=== PATIENT | female | born 1935 | race Asian ===

== ENCOUNTER 2021-01-23 07:26 | Inpatient (IN) ==
[2021-01-23 07:39] VITALS: BMI 22.8
[2021-01-23] MEDS ORDERED: CATAPRES PO STA (07:45)
[2021-01-23] MEDS ORDERED: MOTRIN PO STA (07:45)
[2021-01-23] MEDS ORDERED: ZOFRAN 4 MG/2 ML IVP STA (07:45)
[2021-01-23] MEDS ORDERED: TYLENOL PO STA (07:45)
[2021-01-23] MEDS ORDERED: SODIUM CHLORIDE 500 ML IV STA ×3 (07:45→11:47)
[2021-01-23 08:09] LABS: BASOPHILS % (AUTO) 0.3 % (0.0-3.0); EOSINOPHILS # (AUTO) 0.1 K/ul (0.0-0.7); EOSINOPHILS % (AUTO) 0.9 % (0.0-7.0); HEMATOCRIT 39.3 % (37.0-47.0); HEMOGLOBIN 12.9 g/dl (12.0-16.0); IMMATURE GRANULOCYTE # (AUTO) 0.1 (0.0-1.0); IMMATURE GRANULOCYTE % (AUTO) 0.5 % (0.0-5.0); LYMPHOCYTES # (AUTO) 0.9 K/uL (0.60-3.4); LYMPHOCYTES % (AUTO) 7.6 (10.0-50.0); MEAN CORPUSCULAR HEMOGLOBIN 28.3 pg (27.0-31.0); MEAN CORPUSCULAR HGB CONC 32.8 (31.8-35.4); MEAN CORPUSCULAR VOLUME 86.2 fl (81.0-99.0); MONOCYTES # (AUTO) 0.1 K/uL (0.4-2.0); NEUTROPHILS # (AUTO) 10.1 K/ul (2.0-6.9); NEUTROPHILS % (AUTO) 89.7 % (42.2-75.2); PLATELET COUNT 228 10^3/uL (140-440); RDW COEFFICIENT OF VARIATION 12.9 % (11.6-14.8); RED BLOOD COUNT 4.56 10^6/ul (4.20-5.40); WHITE BLOOD COUNT 11.21 K/ul (4.6-10.2)
--- NOTE | 2021-01-23 08:10 | ED.PDOC ---
General ED Provider: Dr. PALAK KRAMER MD Chief Complaint: Nausea/Vomiting Stated Complaint: chills, nausea and vomiting x this AM. Time Seen by Provider: 01/23/21 07:33 Mode of Arrival: Wheelchair Information Source: Family Exam Limitations: Language barrier (pt son was piece jobber. pt questions were answered via her son and he expressed understanding of what was said.) Nursing and Triage Documentation Reviewed and Agree: Yes Does patient meet sepsis criteria?: No System Inflammatory Response Syndrome: Not Applicable Sepsis Protocol: For patient's 13 years and over: Temp is 96.8 and below OR 101 and greater Pulse >90 BPM Resp >20/minute Acutely Altered Mental Status Are patient's symptoms suggestive of a new infection, such as: -Pneumonia -Skin, Soft Tissue -Endocarditis -UTI -Bone, Joint Infection -Implantable Device -Acute Abdominal Infection -Wound Infection -Meningitis -Blood Stream Catheter Infection -Unknown Respiratory Complaint Exam Shortness of Air Complaint/Exam Onset/Duration: 2 hrs. pt had fever, nausea and vomiting. no SOB sxs. Symptoms Are: Still present Timing: Constant Initial Severity: Moderate Current Severity: Moderate Aggravating: Reports None Alleviating: Reports None Associated Signs and Symptoms: Reports Fever and Chills History of Healthcare-Acquired Pneumonia: No and Lives at group home Cardiac Risk Factors: Reports None Home Oxygen Use: No Recent Stress Test: No Recent Echo/LV Function: No Respiratory Distress: None Stridor Present: No Tracheal Deviation: No Subcutaneous Emphysema: No Accessory Muscle Use: No Retractions: Not Present Diminished Breath Sounds: No Fatigue: Yes Leg Swelling: No Hilaria's Sign Present: No Grunting Respirations: No Kussmaul Respirations: No Differential Diagnoses: COPD Exacerbation, Pneumonia, SARS and URI Review of Systems Review Of Systems Constitutional: Reports Chills and Fever Eyes: Reports No symptoms Ears, Nose, Mouth, Throat: Reports No symptoms Respiratory: Reports No symptoms Cardiac: Reports Palpitations GI: Reports Nausea and Vomiting : Reports No symptoms Musculoskeletal: Reports No symptoms Skin: Reports No symptoms Neurological: Reports No symptoms Endocrine: Reports No symptoms Hematologic/Lymphatic: Reports No symptoms All Other Systems: Reviewed and Negative Physical Exam Physical Exam Appearance: Reports Well-nourished Ill-appearing: Mild Pain Distress: None Eyes: Reports BENJI, EOMI and Conjunctiva clear ENT: Reports Ears normal, Nose normal and Oropharynx normal (mild pharyngeal erythema.) Neck: Supple Respiratory: Reports Airway patent and Breath sounds clear Cardiovascular: Reports Pulses normal, No rub, No murmur and Tachycardia GI/: Reports Soft, Nontender, No masses, Bowel sounds normal and No Organomegaly Musculoskeletal: Reports Normal strength, ROM intact, No edema and No calf tenderness Skin: Reports Warm, Dry and Normal color Neurological: Reports Sensation intact, Motor intact, Reflexes intact, Cranial nerves intact, Alert and Oriented Psychiatric: Reports Affect appropriate and Mood appropriate Interpretation Radiology Interpretation Radiology Interpretation By: Radiologist Exam Interpreted: Portable CXR EKG Interpretation Time of EKG #1: 08:07 Rate: Tachy Rhythm: Sinus Ectopy: None Calion: NL ST Segment: Normal Interpretation: no acute ST or T wave changes. Re-Evaluation Re-Evaluation Time of Re-Evaluation: 08:31 Status: Improved Vital Signs Stable: Yes Pain Level: 0 Lungs: Clear Skin: Warm and Dry Neuro: Alert and Oriented X3 CV: RRR Critical Care Note Critical Care Note Total Critical Care Time (mins): 30 Course Course Hematology/Chemistry: 01/23/21 08:08 01/23/21 08:08 Orders, Labs, Meds: Lab Review 01/23/21 01/23/21 01/23/21 08:05 08:05 08:05 WBC RBC Hgb Hct MCV MCH MCHC RDW Coeff of Kumar Plt Count Immature Gran % (Auto) Neut % (Auto) Lymph % (Auto) Ulster % (Auto) Eos % (Auto) Baso % (Auto) Neut # (Auto) Lymph # (Auto) Ulster # (Auto) Eos # (Auto) Baso # (Auto) Immature Gran # (Auto) Sodium Potassium Chloride Carbon Dioxide Anion Gap BUN Creatinine Estimated GFR (MDRD) BUN/Creatinine Ratio Glucose Lactic Acid Calcium Total Bilirubin AST ALT Alkaline Phosphatase Troponin I Total Protein Albumin Globulin Albumin/Globulin Ratio Lipase 149.0 Urine Color Yellow Urine Clarity Cloudy Urine pH 6.5 Ur Specific Harrington >=1.030 Urine Protein 3+ H Urine Glucose (UA) Negative Urine Ketones Negative Urine Blood Trace-intact H Urine Nitrite Positive H Urine Bilirubin Negative Urine Urobilinogen 0.2 Ur Leukocyte Esterase Trace H Urine Microscopic RBC 5-10 Urine Microscopic WBC 30-50 Ur Squamous Epith Cells 2-5 Amorphous Sediment 3+ Urine Bacteria 3+ Influ A Molecular Assay Negative by naat Influ B Molecular Assay Negative by naat SARS-CoV-2 Ag (Rapid) 01/23/21 01/23/21 01/23/21 08:08 08:08 08:08 WBC 11.21 H RBC 4.56 Hgb 12.9 Hct 39.3 MCV 86.2 MCH 28.3 MCHC 32.8 RDW Coeff of Kumar 12.9 Plt Count 228 Immature Gran % (Auto) 0.5 Neut % (Auto) 89.7 H Lymph % (Auto) 7.6 L Ulster % (Auto) 1.0 Eos % (Auto) 0.9 Baso % (Auto) 0.3 Neut # (Auto) 10.1 H Lymph # (Auto) 0.9 Ulster # (Auto) 0.1 L Eos # (Auto) 0.1 Baso # (Auto) 0.0 Immature Gran # (Auto) 0.1 Sodium 138.9 Potassium 4.31 Chloride 104.4 Carbon Dioxide 22.1 Anion Gap 16.71 BUN 20.3 H Creatinine 0.76 Estimated GFR (MDRD) 72.00 BUN/Creatinine Ratio 26.71 Glucose 205.0 H Lactic Acid 2.63 H Calcium 9.51 Total Bilirubin 0.41 AST 28.4 ALT 16.3 Alkaline Phosphatase 65.6 Troponin I 0.044 Total Protein 8.25 H Albumin 4.37 Globulin 3.88 Albumin/Globulin Ratio 1.12 Lipase Urine Color Urine Clarity Urine pH Ur Specific Har[place] Urine Protein Urine Glucose (UA) Urine Ketones Urine Blood Urine Nitrite Urine Bilirubin Urine Urobilinogen Ur Leukocyte Esterase Urine Microscopic RBC Urine Microscopic WBC Ur Squamous Epith Cells Amorphous Sediment Urine Bacteria Influ A Molecular Assay Influ B Molecular Assay SARS-CoV-2 Ag (Rapid) 01/23/21 08:08 WBC RBC Hgb Hct MCV MCH MCHC RDW Coeff of Kumar Plt Count Immature Gran % (Auto) Neut % (Auto) Lymph % (Auto) Ulster % (Auto) Eos % (Auto) Baso % (Auto) Neut # (Auto) Lymph # (Auto) [place] # (Auto) Eos # (Auto) Baso # (Auto) Immature Gran # (Auto) Sodium Potassium Chloride Carbon Dioxide Anion Gap BUN Creatinine Estimated GFR (MDRD) BUN/Creatinine Ratio Glucose Lactic Acid Calcium Total Bilirubin AST ALT Alkaline Phosphatase Troponin I Total Protein Albumin Globulin Albumin/Globulin Ratio Lipase Urine Color Urine Clarity Urine pH Ur Specific Har[place] Urine Protein Urine Glucose (UA) Urine Ketones Urine Blood Urine Nitrite Urine Bilirubin Urine Urobilinogen Ur Leukocyte Esterase Urine Microscopic RBC Urine Microscopic WBC Ur Squamous Epith Cells Amorphous Sediment Urine Bacteria Influ A Molecular Assay Influ B Molecular Assay SARS-CoV-2 Ag (Rapid) Negative Orders Category Date Time Status EKG-(ED ONLY) Stat CARDIO 01/23/21 07:45 Completed NPO REMINDER: IMAGING ONCE CARE 01/23/21 08:48 Active NPO REMINDER: IMAGING ONCE CARE 01/23/21 09:06 Active ED IV/MEDIPORT/POWERPORT .ONCE EMERGENCY 01/23/21 07:45 Active BLOOD CULTURE (ED ONLY) Stat LAB 01/23/21 08:08 Received CBC W/ AUTO DIFF Stat LAB 01/23/21 08:08 Completed COMPREHENSIVE METABOLIC PANEL Stat LAB 01/23/21 08:08 Completed COVID-19 ANTIGEN TEST Stat LAB 01/23/21 08:08 Completed FLU A/B MOLECULAR Stat LAB 01/23/21 08:05 Completed LACTIC ACID Stat LAB 01/23/21 08:08 Completed LIPASE Stat LAB 01/23/21 08:05 Completed MOLECULAR GROUP A STREP Stat LAB 01/23/21 08:15 Completed PROCALCITONIN Stat LAB 01/23/21 08:05 Received RESPIRATORY PANEL 2.1 (PCR) Stat LAB 01/23/21 Ordered TROPONIN I Stat LAB 01/23/21 08:08 Completed URINALYSIS C & S IF INDICATED Stat LAB 01/23/21 08:05 Completed URINE CULTURE Stat LAB 01/23/21 08:05 Received 0.9 % Sodium Chloride [Saline Flush] MEDS 01/23/21 07:45 Active 1 syr IVF PRN PRN Acetaminophen [Tylenol] MEDS 01/23/21 07:45 Discontinued 650 mg PO ONCE STA Azithromycin [Zithromax] MEDS 01/23/21 10:11 Discontinued 500 mg PO ONCE STA Ceftriaxone/D5w 1 gm Premix [Rocephin 1 gm/50 ml D5w] MEDS 01/23/21 08:33 Discontinued 1 gm in 50 ml IV ONCE Clonidine HCl [Catapres] MEDS 01/23/21 07:45 Discontinued 0.2 mg PO ONCE STA Ibuprofen [Motrin] MEDS 01/23/21 07:45 Discontinued 800 mg PO ONCE STA Ondansetron HCl/Pf [Zofran 4 mg/2 ml] MEDS 01/23/21 07:45 Discontinued 4 mg IVP ONCE STA Sodium Chloride 0.9% [Sodium Chloride] 1,000 ml MEDS 01/23/21 09:49 Active IV 125 mls/hr Sodium Chloride 0.9% [Sodium Chloride] 500 ml MEDS 01/23/21 07:45 Discontinued IV BOLUS Sodium Chloride 0.9% [Sodium Chloride] 500 ml MEDS 01/23/21 10:26 Active IV BOLUS CHEST, 1V AP ONLY Stat RADS 01/23/21 07:[address] ABDOMEN/PELVIS W CONTRAST Stat RADS 01/23/21 09:[address] CHEST W/CONTRAST Stat RADS 01/23/21 08:48 Taken Medications Generic Name Dose Route Start Last Admin Trade Name Freq PRN Reason Stop Dose Admin Sodium Chloride 1,000 mls @ 125 mls/hr 01/23/21 09:49 Sodium Chloride IV 01/23/21 17:48 .Q8H STA Sodium Chloride 500 mls @ 500 mls/hr 01/23/21 10:26 Sodium Chloride IV 01/23/21 11:25 BOLUS STA Sodium Chloride 1 syr 01/23/21 07:45 01/23/21 09:50 0.9% Sodium Chloride 10 Ml Disp.Syrin IVF 1 syr PRN PRN Administration To flush IV Discontinued Medications Generic Name Dose Route Start Last Admin Trade Name Freq PRN Reason Stop Dose Admin Acetaminophen 650 mg 01/23/21 07:45 01/23/21 08:08 Acetaminophen 325 Mg Tablet PO 01/23/21 07:46 650 mg ONCE STA Administration Azithromycin 500 mg 01/23/21 10:11 01/23/21 10:38 Azithromycin 250 Mg Tablet PO 01/23/21 10:12 500 mg ONCE STA Administration Clonidine 0.2 mg 01/23/21 07:45 01/23/21 08:07 Clonidine Hcl 0.1 Mg Tablet PO 01/23/21 07:46 0.2 mg ONCE STA Administration Sodium Chloride 500 mls @ 500 mls/hr 01/23/21 07:45 01/23/21 08:08 Sodium Chloride IV 01/23/21 08:44 500 mls/hr BOLUS STA Administration CEFTRIAXONE/D5W 1 GM PREMIX 1 gm in 50 mls @ 75 mls/hr 01/23/21 08:33 01/23/21 08:46 Rocephin 1 Gm/50 Ml D5w IV 01/23/21 09:12 75 mls/hr ONCE STA Administration Ibuprofen 800 mg 01/23/21 07:45 01/23/21 08:08 Ibuprofen 400 Mg Tablet PO 01/23/21 07:46 800 mg ONCE STA Administration Ondansetron HCl 4 mg 01/23/21 07:45 01/23/21 08:08 Ondansetron Hcl/Pf 4 Mg/2 Ml Sdv IVP 01/23/21 07:46 4 mg ONCE STA Administration Vital Signs: Temp Pulse Resp BP Pulse Ox 01/23/21 07:31 102.5 F H 115 H 22 198/93 H 96 Discharge Plan Discharge Prescriptions: No Action Vitamin C 25 mg Tablet 25 mg PO DAILY RF: 0 B-complex with vitamin C [Blank B Comp W/C] Capsule 25 cap PO DAILY RF: 0 ED Provider: PALKA KRAMER Physician Progress Note: []Pt was d/w Dr King and her family: for admission here. Please see admission orders.
[2021-01-23 08:16] LABS: BILIRUBIN,URINE Negative (NEGATIVE); CLARITY,URINE Cloudy (CLEAR); COLOR,URINE Yellow (YELLOW); GLUCOSE, URINE (UA) Negative (NEGATIVE); KETONES,URINE Negative (NEGATIVE); LEUKOCYTE ESTERASE ,URINE Trace (NEGATIVE); NITRITE,URINE Positive (NEGATIVE); PH,URINE 6.5 (5-9); PROTEIN,URINE 3+ (NEGATIVE); URINE, BLOOD Trace-intact (NEGATIVE); UROBILINOGEN,URINE 0.2 (0.2)
[2021-01-23 08:21] LABS: ALANINE AMINOTRANSFERASE 16.3 U/L (0-35); ALBUMIN 4.37 g/dL (3.5-5.0); ALKALINE PHOSPHATASE 65.6 U/L (53-141); ASPARTATE AMINO TRANSFERASE 28.4 U/L (14-36); BILIRUBIN,TOTAL 0.41 mg/dL (0.2-1.3); BLOOD UREA NITROGEN 20.3 mg/dL (7-17); CALCIUM 9.51 mg/dL (8.4-10.2); CARBON DIOXIDE 22.1 mmol/L (22-30.0); CHLORIDE 104.4 mmol/L (98-107); CREATININE 0.76 mg/dL (0.60-1.30); POTASSIUM 4.31 mmol/L (3.5-5.1); SODIUM 138.9 mmol/L (134.5-145); TOTAL PROTEIN 8.25 g/dL (6.3-8.2)
[2021-01-23 08:23] LABS: AMORPHOUS SEDIMENT,UR 3+ (NOT PRESENT); BACTERIA,URINE 3+ (NOT PRESENT); URINE WBC, MICROSCOPIC 30-50 (0-2)
[2021-01-23 08:33] LABS: TROPONIN I 0.044 ng/ml (0.0000-0.120)
[2021-01-23] MEDS ORDERED: ROCEPHIN 1 GM/50 ML D5W 1 GM/50 ML BAG IV STA (08:33)
[2021-01-23 08:34] LABS: MOLECULAR FLU A NEGATIVE BY NAAT (NEGATIVE); MOLECULAR FLU B NEGATIVE BY NAAT (NEGATIVE)
--- NOTE | 2021-01-23 08:46 | DI ---
EXAM: Chest one view HISTORY: Fever, vomiting COMPARISON: None TECHNIQUE: Single view of the chest was performed FINDINGS: Heart size is upper limits of normal. Nonspecific prominence of the right hilum. The danisha gs are clear. No pleural effusion or pneumothorax. No acute osseous abnormality. IMPRESSION: 1. No acute cardiopulmonary process. 2. Nonspecific right hilar prominence, which could represent vascular summation artifact versus whitney opathy or neoplasm. CT chest with IV contrast can further evaluate.
[2021-01-23] MEDS ORDERED: SODIUM CHLORIDE 1,000 ML IV STA (09:49)
--- NOTE | 2021-01-23 09:53 | CT ---
EXAM: CT chest with intravenous contrast CT abdomen and pelvis with intravenous contrast COMPARISON: Chest radiograph 01/23/2021. HISTORY: Abnormal chest radiograph. Nausea, vomiting and fever. TECHNIQUE: CT images of the chest, abdomen and pelvis were obtained following the administration of intravenous contrast agent. Axial reconstructions with sagittal and coronal reformats were provided. Submitted images are moderately limited by patient motion artifact. FINDINGS: CT chest: Limited assessment of the mediastinal vessels due to motion artifact. There are scattered vascular c alcifications as well as eccentric atherosclerotic plaque with some irregular margins involving the a rosalina at the level of the aortic arch and extending along the origin of the left subclavian artery. N o evidence of an aneurysm. Mild eccentric plaque formation extends through the descending thoracic a rosalina. No mediastinal hematoma. Mild cardiomegaly. No significant pericardial effusion. Sub centim eter mediastinal and hilar lymph nodes which are not pathologic by size criteria. Central airways ar e patent. Soft tissue fullness noted in the right hilum on recent chest radiographs is likely relate d to superimposition of blood vessels at that site. Limited assessment of the lung parenchyma due to respiratory motion artifact. Regions of linear subs egmental atelectasis versus scarring in the left lower lobe and middle lobe. Dependent atelectasis b ilaterally. Patchy ground-glass opacities lower lobes bilaterally could represent superimposed mild pneumonitis/pneumonia and clinical correlation is recommended. 0.5 cm nodular opacity laterally in t he right lung base pleural effusion or pneumothorax. Mild degenerative changes of the thoracic spine . CT abdomen/pelvis: Fatty infiltration of the liver. Calcified gallstones measuring up to 1.4 cm in size. Gallbladder measures up to 2.9 cm in diameter. The spleen, pancreas and adrenal glands are gr ossly unremarkable. Common bile duct is prominent measuring up to 0.7 cm in diameter. Vascular calc ifications an eccentric plaque formation involving the abdominal aorta without evidence of an aneurys m. Atherosclerotic changes of the iliac arteries and mesenteric vessels without definite evidence of high-grade stenosis. Perinephric stranding bilaterally more pronounced on the right side. There is mild to moderate right-sided hydronephrosis and hydroureter with distension of the ureter extending all the way through the through the vesicoureteral junction though without definite radiopaque obstru cting calculus. They appears to be some urothelial enhancement. Correlation for signs of infection or recent stone passage is recommended. Wall thickening of the urinary bladder which could be relate d to cystitis. No evidence of left-sided hydronephrosis. Low-density lesion in the upper pole of th e left kidney may represent a small cyst though is too small to definitely characterized. Limited assessment of the bowel due to lack of enteric contrast. Small bowel and colon are normal in caliber without evidence of bowel obstruction. Minor amount of well-formed stool within the colon p roximally. No evidence of acute appendicitis. No evidence of acute diverticulitis. No free intra-a bdominal air or fluid. Degenerative changes lumbar spine most severe at L5/S1 with large disc osteop hyte complex and vacuum phenomenon. Degenerative changes of the sacroiliac joints pubic symphysis. Degenerative changes of the hips more severe on the right side. The final report was faxed to the radiology department and emergency room at 9:44 a.m. on 01/23/2021. IMPRESSION: CT chest: No right hilar mass. The abnormality on prior radiographs is likely related to superimposition of va scular structures. Sub centimeter mediastinal and hilar lymph nodes which are not pathologic by size criteria. Cardiomegaly and atherosclerotic vascular disease as described. Dependent atelectasis. Patchy ground-glass opacities in the lower lobes bilaterally may represent rivera perimposed mild pneumonitis/pneumonia. Clinical correlation is recommended. 0.5 cm subpleural nodule laterally in the right lung base. Recommend follow-up CT chest in [address] abdomen/pelvis: Atherosclerotic vascular disease. No evidence of bowel obstruction. Normal appendix. Moderate amount of well-formed stool. Mild to moderate right hydronephrosis without definite obstructing radiopaque calculus. Suspected ur othelial enhancement. Wall thickening of the urinary bladder. Correlate clinically for signs of cys titis/pyelonephritis or recent stone passage. Question small left renal cyst. Cholelithiasis. Correlate clinically for signs of acute cholecystitis. Additional chronic / degenerative changes as described. All CT scans are performed using dose optimization techniques as appropriate to the performed exam an d include at least one of the following: Automated exposure control, adjustment of the mA and/or kV according t o size, and the use of iterative reconstruction technique.
[2021-01-23] MEDS ORDERED: ZITHROMAX PO STA (10:11)
[2021-01-23] MEDS ORDERED: TYLENOL PO PRN (11:10)
[2021-01-23] MEDS ORDERED: SODIUM CHLORIDE 1,000 ML IV SCH (11:30)
[2021-01-23] MEDS ORDERED: LEVAQUIN 750 MG/150 ML D5W 750 MG/150 ML BAG IV SCH (11:30)
--- NOTE | 2021-01-23 11:39 | PCM ---
Chief Complaint Chief Complaint: Chills nausea and vomiting. History of Present Illness History of Present Illness: 85 yo [place] Female presented to ED this am 01/23/21 at 0733 with chills, nausea, vomiting x2. The patient is present with her son, who is able to translate for her due to language barrier. Vitals on presentation showed temp 102.5, pulse 115, rr 22 BP 198/93 and Po2 96% on RA. SIRS criteria were met based on temp, HR, RR. Symptoms present 2 hours fever, nausea and emesis this am. No reported SOA/sxs. Symptoms still present, moderate severity in ED, no known agg/ameliorating factors. Reported non longterm resident. No reported respiratory distress, no stridor, no emphysema, no diminished breath sounds reported, Fatigue reported, no peripheral edema. Ddx in ED considered COPD exacerbation, pneumonis, SARS, URI. ROS as listed. Exam from ED only showed mild erythematous pharynx. EKG done in ED 0807 Sinus tachy, nl axis, ST segments normal> The formal EKG was not available to my review at time of rounding. Labs in ED showed Flu negative, rapid COVID negative. BIOFIRE PENDING at time of examination. WBC 11.21, hgb 12.9, plt 228. Neutrophila 89.7% ANC 10.1. CMP Sodium 138.9, K+ 4.31, BUN 20.3, cr 0.76, glucose 205. Calcium 9.51. AST 28.4. ALT 16.3. Alk phos 65.6. Troponin I was negative at 0.044. Lactic acid elevated at 2.63. Urine showed 6.5 PH, SG 1.030. Protien 3+, blood trace, nitrite positive, trace leuk est, rbc 5-10, wbc 30-50, squam epi 2-5, bact 3+. Blood cultures were ordered/submitted. Chest xray was completed no acute process. Non specific right hilar prominence which could represent vascular summation artifact versus adenopathy or neoplasm. CT chest with IV contrast can further evaluate. CT abd/pelvis was ordered. No right hilar mass. The abnormality on prior radiographs is likely related to superimposition of vascular structures. Sub centimeter mediastinal and hilar lymph nodes which are not pathologic by size criteria. Cardiomegaly and atherosclerotic vascular disease as described. Dependent atelectasis. Patchy ground-glass opacities in the lower lobes bilaterally may represent superimposed mild pneumonitis/pneumonia. Clinical correlation is recommended. 0.5 cm subpleural nodule laterally in the right lung base. Recommend follow-up CT chest in [address] abdomen/pelvis: Atherosclerotic vascular disease. No evidence of bowel obstruction. Normal appendix. Moderate amount of well-formed stool. Mild to moderate right hydronephrosis without definite obstructing radiopaque calculus. Suspected urothelial enhancement. Wall thickening of the urinary bladder. Correlate clinically for signs of cystitis/pyelonephritis or recent stone passage. Question small left renal cyst. Cholelithiasis. Correlate clinically for signs of acute cholecystitis.Additional chronic / degenerative changes as described. Dr. Vincent presented a patient with pneumonia to me clinically. I asked several questions about the patient care and found that her summation is more likely urosepsis than pneumonia w/ sepsis. She was given clonidine in ED 0.2mg and her BP dropped from 198/93 to 80's SBP per ED report. HR dropped to <100 as well per ED report. Given tylenol 650, also 1 L NS which is reasonable assuming sepsis protocol. She was given ibuprofen, which I will not continue at [facility]. Zofran for nausea and azithrmax 500 and rocephin 1 gram. Based on concern for emesis, concern for bilateral pneumonia, concern for NH status, Pseudomonas must be considered. I will change this to levaquin 750 daily and cefepime 2grams IV q 8 hours. I have not seen patient as an outpatient historically. She had an appt with me historically but this appt was not kept. I evaluated patient in ED room 1. Called son at [phone] and had a 14 minute conversation. Patient awoke this am with s/sx of current problem. Yesterday was fine, this am was fine. 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 She had 2 rounds of emesis. Did not choke.Did not seem to be different, no drop in face, no weakness, no falls, no confusion, no altered status. He noted that he gave her a heating pad and that she felt a little better. They brought her to ED and she noted she felt nearly 100% better after fluids and abx. In fact, she wanted to go home. Son noted that the ER doctor told her it was not safe and they needed to talk to me first. He stated she feels everything is good. No c/o burning with urination, no frequency, no hesitancy, no burning. No diarrhea, no N/V/D prior to today. No abnormal foods, no sick contacts, no recent travel. No other c/o that they can report. She normally takes Vit D/Vit C/Vit B. This am took some tylenol PM when feeling poorly. Healthy otherwise, no medical problems, no regular provider, no regular doctors office visits. Last time she saw a doctor was 6 months ago. Went to visit daughter in [place] and had similar episode of 1 day fever and symptoms. Son noted that they kept her for 5 days but has no idea what they did. I asked if he could contact her and we would discuss what they did for her at that time. No regular meds, no regular medical problems, does not get routine medical care/surveillance. They were not able to understand code status. I will keep them as full code for now. Son noted she was at baseline. No N/V now. No abdominal pain,no chest pain, no SOA. No reported headache, no vision changes, no loss of taste/smell, No new URI symptoms, reviewed allergy symptoms, no cough/congestion/wheezing/SOA, No CP, no reported fatigue, no abd pain, no N/V/D, no constipation, no changes reported in urination/stooling, no new MSK pain except as above, no recent injuries except as listed above. Falls reviewed and listed above. 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 No dietary issues, no choking on foods. normal BM, normal uout. Only issues was this am nausea/vomiting and fever. I asked if she would be willing to stay overnight at least to evaluate her and to make sure she is improving. He said yes. I feel that this is more urological than pulmonary based on presentatation and CT scan. I will cover with cefepime and levaquin for urosepsis as possible. Biofire returned at 11:10 otero negative. Procalcitonin was below typical threshold of <.50 but borderline. Last Vitals as of 12:18. Temp 99.6. Pulse 78 and BP 84/49 with O2 94% on RA. She is improving. I agree at least 24 hour admission is warranted. PORT SCORE: 92 points Risk Class IV 8.2-93.% Mortality. Recommended hospitalization as inpatient. CrCl 47ml/min. based on this Would recommend Cefepimre 2gram q 12 hours and Levaquin 750mg QOD (q 48 hours). Fluids to continue at 97 ml/hour Lovenox for DVT prophy recommended. REVIEW OF SYMPTOMS: (Positives bolded) General: No reported weight loss, + fever, chills, no night sweats, fatigue, appetite loss, felt fine up until this am. HEENT: No reported blurry vision, eye pain, eye discharge, dry eyes, decreased vision, sore throat tinnitus, bloody nose, hearin gloss, sinus pain/pressure, ear pain/pressure. Respiratory: No reported shortness of breath, cough, hemoptysis, wheezing, pleurisy, Cardiovascular: No chest pain, PND, palpitation, edema, orthopnea, syncope, swelling of extremities Gastro: + Nausea, vomiting, no reported diarrhea, hematemesis, + abdominal pain, constipation Genito: No reported hematuria, dysuria, glycosuria, hesitancy, frequency, incontinence. Specifically asked today. Musckelo: Arthralgia, myalgia, muscle weakness, joint swelling, NSAID use Skin: rash, pruritis, sores, nail changes, skin thickening, change in wart/mole, itching, rash, new lesions, pruritus, nail changes Neuro: Migraine, numbness, ataxia, tremor, vertigo, weakness, memory loss, Irritability, dizziness Endocrine: excessive thirst, polyuria, cold intolerance, heat intolerance, goiter Psychiatric: depression, anxiety, anti-depressants, alcohol abuse, drug abuse, insomnia, change in sleep pattern and mood changes Heme/lymph: easy bruising, bleeding gums, blood clots, swollen glands, lymphedema, Allergic/immune: allergic rhinitis, hay fever, asthma, hives Vital Signs Temp Pulse Resp BP Pulse Ox 01/23/21 12:18 99.6 F 78 18 84/49 L 94 L 01/23/21 11:39 102.5 F H 115 H 22 198/93 H 96 01/23/21 07:31 102.5 F H 115 H 22 198/93 H 96 Constitutional: Appearance-No acute distress, Resting eyes closed. Opens eyes to command. GCS 15. Language Kuwaiti, non chinik Angolan speaker. Son as belting and webbing inspector via phone. Offered language line, he would like that in future, but now he is happy to translate. Consistent with stated age. Orientation- Oriented x 3, aware of name, sunday, hospital, january. Build and Nutrition-normal BMI 22.9 General- Patient is pleasant and cooperative with the interview and exam. She was able to understand some albanian phrases and commands. Integumentary: General-No rashes, ulcers or lesions. Palpation- Normal skin moisture/turgor. Skin is warm to touch, appropriate. Capillary refill is normal bilateral Upper and lower extremity. Scaring bilateral anterior shins. Head/Neck: Head- normocephalic and atraumatic. Neck- without visible/palpable lumps or pulsations. Palpation- No bony tenderness about head/neck along f rontal, occipital, temporal, parietal, mastoid, jawline, zygoma, orbit or any other location. NO temporal artery tenderness. No TMJ tenderness. Neck Supple. Thyroid-No thyromegaly, no nodules Eye: Bilaterally PERRLA, EOMI. No discharge. Upper and lower eyelids are normal. Sclera/conjunctiva normal without discharge. Cornea is normal and clear. Lens is normal. Eyeball appears normal. No ciliary flushing, no conjunctival injection. ENMT: Pinna- normal without tenderness or erythema. External auditory canal Left- normal without erythema or discharge, no excessive cerumen. External auditory canal Right-normal without erythema or discharge, no excessive cerumen. TM left- Lyons/pearly, normal light reflex and anatomy TM Right- Lyons/pearly, normal light reflex and anatomy Hearing Assessment-normal to conversational speech. Nose and sinus- No sinus tenderness along frontal/maxillary region. External appearance normal and midline. Nares- bilateral quiet airflow, no discharge. Nasal mucosa- No bleeding noted and no ulcerations observed. [place], moist. Turbinates non boggy. Lips- normal color, moist without cracks/lesions Oral Cavity/Palate- hard/soft palate intact without lesions, oral mucosa pink and moist.ongue normal midline. Oropharynx- no pharyngeal erythema, Uvula midline. No post nasal drip. No exudate. Salivary glands- Non tender to palpation CHEST/LUNG: Inspection- symmetric chest wall no pectus deformity. Normal effort, no distress, no use of accessory muscles. Palpation- nontender sternum, ribline. No abnormal pulsations. Auscultation- Breath sounds normal throughout all lung shah. Normal tracheal sounds, Normal bronchial sounds overlying sternum, Bronchovessicular sounds coarse and reduced between scapulae posteriorly, similar for vessicular breath sounds heard throughout periphery. Lungs are mostly clear except mild crackling at the bases. Adventitious sounds- No wheezes, no rhonchi, rales as listed. Shallow inspiration. Coughed x 1 cleared. Biofire negative for COVID. CARDIOVASCULAR: Carotid artery- normal, no bruits or abnormal pulsations. J ugular vein- no pulsations. Palpation/Percussion- Normal PMI, no palpable thrill Auscultation- Regular rate and rhythm. No murmur noted in sitting, supine positions. Extremities- no digital clubbing, cyanosis, edema, increased warmth. No appreciable murmur. ABDOMEN: Inspection- normal and no visible pulsations. Normal contour. Auscultation- Bowel sounds normal, no abdominal bruits. Palpation/Percussion- soft, tender suprapubic and LLQ, no rebound tenderness, no rigidity (guarding), no jar tenderness, no masses. CVA tenderness + on right. Peripheral Vascular: Upper extremity Left- Normal temperature with pink nailbeds and no ulcerations. Upper extremity Right- Normal temperature with pink nailbeds and no ulcerations. Lower extremity- Normal temperature with pink nailbeds and no ulcerations. DP pulses 2+ bilaterally. Pedal hair intact. Normal capillary refill. Edema- No edema. Musculoskeletal: Generalized-No generalized swelling or edema of extremities, no digital clubbing or cyanosis, neurovascularly intact all four extremities. Upper extremity- Symmetrical posture. No visible deformity. Normal sensation along medial and lateral upper extremity proximally and distally. NO tenderness overlying shoulder, lateral/medial epicondyle. [employer] 5/5 and strength 5/5 bilateral UE. Elbow palpated, no tenderness overlying olecranon. Normal supination, pronation to active/passive ROM and to resisted rotation. Bicep insertion/tricep insertion appear normal without obvious pathology. Normal wrist ROM bilaterally. Normal hand movement, intrinsic muscles of hands normal. No tenderness to palpation of hands/wrists/elbows. Lower extremity- Hip: Not tender to palpation, no pain, no swelling, edema or erythema of surrounding tissue, normal strength and tone. Normal appearing hip ROM bilaterally without pain. Knee: Knee ROM normal. No tenderness overlying trochanters, no tenderness about patella, quad tendon, patellar tendon. No tenderness at tibial tuberosity. Ankle: normal ROM not tender to palpation along medial/lateral malleolus. Foot: Normal movement of toes, no tenderness bilateral feet/toes. Normal foot type. Spine/Ribs- No deformities, masses or tenderness, no known fractures, normal strength, Normal ROM. Normal stability No tenderness along C/T/L spine. Normal appearing ROM about spine. Neurological: General- Moves all 4 extremities symmetrically. Symmetrical face and body posture. Cranial nerves- individually evaluated II-XII and intact. PERRLA, Normal EOMI, visual/special senses appear intact, Face is symmetrical and normal sensation/movement, normal tongue, normal strength/posture of neck musculature. Reflexes- intact with DTR 2+ patellar, Achilles, bicep, brachial, tricep. Ankle clonus normal with 2 beats. Strength- 5/5 bilateral UE and LE. Soft touch- intact bilateral UE and LE. Temperature sensation- intact bilateral UE and LE. Neuropsych: Oriented- Person, place, time. (AAOx3), Mood/affect- normal and congruent. Able to articulate well. Speech-Normal speech, normal rate, normal tone, normal use of language, volume and coherence. Thought content- normal with ability to apply abstract thought/reason. Associations- intact, no SI/HI, no hallucinations, delusions, obsessions. Judgment/insight- Appropriate. Memory-Recall intact, remote and recent memory intact. Knowledge- Age appropriate fund of knowledge, concentration and attention span normal. language barrier. She has age appropriate understanding. Lymphatic: Head/Neck- normal size and non tender to palpation. Axillary- normal size and non tender to palpation. Femoral and Inguinal- normal size and non tender to palpation. Allergies Allergies Allergy/AdvReac Type Severity Reaction Status Date / Time No Known Allergies Allergy Verified 01/23/21 10:56 [facility] Medical History (Updated 01/23/21 @ 13:59 by KRISTIE CASTELLON, RN) No known health problems Family History Other No known health problems Social History Smoking and tobacco status: Never smoker Alcohol intake: never Medications Medications: Medications Generic Name Dose Route Start Last Admin Trade Name Freq PRN Reason Stop Dose Admin Acetaminophen 650 mg 01/23/21 11:10 Acetaminophen 325 Mg Tablet PO Q8H PRN Mild/Moderate Pain Albuterol Sulfate 2 puff 01/23/21 14:00 Albuterol Sulfate (Ventolin Hfa) 18 Gm 1 Puff With Spacer IH RTQID DEONDRE Sodium Chloride 1,000 mls @ 125 mls/hr 01/23/21 09:49 Sodium Chloride IV 01/23/21 17:48 .Q8H STA Sodium Chloride 1,000 mls @ 100 mls/hr 01/23/21 11:30 Sodium Chloride IV .Q10H DEONDRE Levofloxacin/Dextrose 750 mg in 150 mls @ 100 mls/hr 01/23/21 11:30 Levaquin 750 Mg/150 Ml D5w IV 01/26/21 11:29 DAILY DEONDRE Ceftazidime 2 gm/ Sodium 50 mls @ 50 mls/hr 01/24/21 09:00 Chloride IV 01/27/21 08:59 Q8HR DEONDRE Ondansetron HCl 4 mg 01/23/21 11:30 Ondansetron Hcl/Pf 4 Mg/2 Ml Sdv IVP Q8H DEONDRE Sodium Chloride 1 syr 01/23/21 07:45 01/23/21 09:50 0.9% Sodium Chloride 10 Ml Disp.Syrin IVF 1 syr PRN PRN Administration To flush IV Body Composition Height: 5 ft 2 in Weight: 125 lb Body Mass Index (BMI): 22.8 Lab/Tests/Diagnostic Imaging Lab/Tests/Diagnostic Imaging: Lab Review 01/23/21 01/23/21 01/23/21 08:05 08:05 08:05 WBC RBC Hgb Hct MCV MCH MCHC RDW Coeff of Kumar Plt Count Immature Gran % (Auto) Neut % (Auto) Lymph % (Auto) [place] % (Auto) Eos % (Auto) Baso % (Auto) Neut # (Auto) Lymph # (Auto) [place] # (Auto) Eos # (Auto) Baso # (Auto) Immature Gran # (Auto) Sodium Potassium Chloride Carbon Dioxide Anion Gap BUN Creatinine Estimated GFR (MDRD) BUN/Creatinine Ratio Glucose Lactic Acid Calcium Total Bilirubin AST ALT Alkaline Phosphatase Troponin I Total Protein Albumin Globulin Albumin/Globulin Ratio Lipase 149.0 Urine Color Yellow Urine Clarity Cloudy Urine pH 6.5 Ur Specific [place] >=1.030 Urine Protein 3+ H Urine Glucose (UA) Negative Urine Ketones Negative Urine Blood Trace-intact H Urine Nitrite Positive H Urine Bilirubin Negative Urine Urobilinogen 0.2 Ur Leukocyte Esterase Trace H Urine Microscopic RBC 5-10 Urine Microscopic WBC 30-50 Ur Squamous Epith Cells 2-5 Amorphous Sediment 3+ Urine Bacteria 3+ Influ A Molecular Assay Negative by naat Influ B Molecular Assay Negative by naat SARS-CoV-2 Ag (Rapid) 01/23/21 01/23/21 01/23/21 08:08 08:08 08:08 WBC 11.21 H RBC 4.56 Hgb 12.9 Hct 39.3 MCV 86.2 MCH 28.3 MCHC 32.8 RDW Coeff of Kumar 12.9 Plt Count 228 Immature Gran % (Auto) 0.5 Neut % (Auto) 89.7 H Lymph % (Auto) 7.6 L [place] % (Auto) 1.0 Eos % (Auto) 0.9 Baso % (Auto) 0.3 Neut # (Auto) 10.1 H Lymph # (Auto) 0.9 [place] # (Auto) 0.1 L Eos # (Auto) 0.1 Baso # (Auto) 0.0 Immature Gran # (Auto) 0.1 Sodium 138.9 Potassium 4.31 Chloride 104.4 Carbon Dioxide 22.1 Anion Gap 16.71 BUN 20.3 H Creatinine 0.76 Estimated GFR (MDRD) 72.00 BUN/Creatinine Ratio 26.71 Glucose 205.0 H Lactic Acid 2.63 H Calcium 9.51 Total Bilirubin 0.41 AST 28.4 ALT 16.3 Alkaline Phosphatase 65.6 Troponin I 0.044 Total Protein 8.25 H Albumin 4.37 Globulin 3.88 Albumin/Globulin Ratio 1.12 Lipase Urine Color Urine Clarity Urine pH Ur Specific [place] Urine Protein Urine Glucose (UA) Urine Ketones Urine Blood Urine Nitrite Urine Bilirubin Urine Urobilinogen Ur Leukocyte Esterase Urine Microscopic RBC Urine Microscopic WBC Ur Squamous Epith Cells Amorphous Sediment Urine Bacteria Influ A Molecular Assay Influ B Molecular Assay SARS-CoV-2 Ag (Rapid) 01/23/21 08:08 WBC RBC Hgb Hct MCV MCH MCHC RDW Coeff of Kumar Plt Count Immature Gran % (Auto) Neut % (Auto) Lymph % (Auto) [place] % (Auto) Eos % (Auto) Baso % (Auto) Neut # (Auto) Lymph # (Auto) [place] # (Auto) Eos # (Auto) Baso # (Auto) Immature Gran # (Auto) Sodium Potassium Chloride Carbon Dioxide Anion Gap BUN Creatinine Estimated GFR (MDRD) BUN/Creatinine Ratio Glucose Lactic Acid Calcium Total Bilirubin AST ALT Alkaline Phosphatase Troponin I Total Protein Albumin Globulin Albumin/Globulin Ratio Lipase Urine Color Urine Clarity Urine pH Ur Specific [place] Urine Protein Urine Glucose (UA) Urine Ketones Urine Blood Urine Nitrite Urine Bilirubin Urine Urobilinogen Ur Leukocyte Esterase Urine Microscopic RBC Urine Microscopic WBC Ur Squamous Epith Cells Amorphous Sediment Urine Bacteria Influ A Molecular Assay Influ B Molecular Assay SARS-CoV-2 Ag (Rapid) Negative Orders Category Date Time Status ABG DRAW REQUEST Stat CARDIO 01/23/21 11:10 Ordered EKG-(ED ONLY) Stat CARDIO 01/23/21 07:45 Completed METERED DOSE INHALATION Routine CARDIO 01/23/21 11:14 Ordered OXYGEN Routine CARDIO 01/23/21 11:10 Ordered SPUTUM INDUCTION PRN CARDIO 01/23/21 11:15 Ordered ACTIVITY .BR with BRP CARE 01/23/21 11:10 Active INTAKE & OUTPUT Q8HR CARE 01/23/21 11:10 Active NPO REMINDER: IMAGING ONCE CARE 01/23/21 08:48 Active NPO REMINDER: IMAGING ONCE CARE 01/23/21 09:06 Active REMINDER: Notify Provider if temp >101.5 PRN CARE 01/23/21 11:10 Active REMINDER:Breath Sounds&Sputum Production BID CARE 01/23/21 11:10 Active REMINDER:Notify Provider Pulse<60 or>130 PRN CARE 01/23/21 11:10 Active REMINDER:Notify if BP<90/60 or >170/110 PRN CARE 01/23/21 11:10 Active VITAL SIGNS Q8HR CARE 01/23/21 11:10 Active REGULAR DIET DIETARY 01/23/21 Lunch Ordered ED IV/MEDIPORT/POWERPORT .ONCE EMERGENCY 01/23/21 07:45 Active BLOOD CULTURE (ED ONLY) Stat LAB 01/23/21 08:08 Received CBC W/ AUTO DIFF DAILY@0600 LAB 01/24/21 06:00 Ordered CBC W/ AUTO DIFF DAILY@0600 LAB 01/25/21 06:00 Ordered CBC W/ AUTO DIFF Stat LAB 01/23/21 08:08 Completed COMPREHENSIVE METABOLIC PANEL DAILY@0600 LAB 01/24/21 06:00 Ordered COMPREHENSIVE METABOLIC PANEL DAILY@0600 LAB 01/25/21 06:00 Ordered COMPREHENSIVE METABOLIC PANEL Stat LAB 01/23/21 08:08 Completed COVID-19 ANTIGEN TEST Stat LAB 01/23/21 08:08 Completed FLU A/B MOLECULAR Stat LAB 01/23/21 08:05 Completed LACTIC ACID Stat LAB 01/23/21 08:08 Completed LIPASE Stat LAB 01/23/21 08:05 Completed MOLECULAR GROUP A STREP Stat LAB 01/23/21 08:15 Completed PROCALCITONIN Stat LAB 01/23/21 08:05 Received RESPIRATORY PANEL 2.1 (PCR) Stat LAB 01/23/21 11:10 Received TROPONIN I Stat LAB 01/23/21 08:08 Completed URINALYSIS C & S IF INDICATED Stat LAB 01/23/21 08:05 Completed URINE CULTURE Stat LAB 01/23/21 08:05 Received 0.9 % Sodium Chloride [Saline Flush] MEDS 01/23/21 07:45 Active 1 syr IVF PRN PRN Acetaminophen [Tylenol] MEDS 01/23/21 07:45 Discontinued 650 mg PO ONCE STA Acetaminophen [Tylenol] MEDS 01/23/21 11:10 Active 650 mg PO Q8H PRN Albuterol Inhaler(with Spacer) [Ventolin Hfa (Per Puff- MEDS 01/23/21 14:00 Ordered with Spacer)] 2 puff IH RTQID Azithromycin [Zithromax] MEDS 01/23/21 10:11 Discontinued 500 mg PO ONCE STA Ceftazidime Pentahydrate [Fortaz] 2 gm MEDS 01/24/21 09:00 Ordered 0.9 % Sodium Chloride [Sodium Chloride] 50 ml IV Q8HR Ceftriaxone/D5w 1 gm Premix [Rocephin 1 gm/50 ml D5w] MEDS 01/23/21 08:33 Discontinued 1 gm in 50 ml IV ONCE Clonidine HCl [Catapres] MEDS 01/23/21 07:45 Discontinued 0.2 mg PO ONCE STA Ibuprofen [Motrin] MEDS 01/23/21 07:45 Discontinued 800 mg PO ONCE STA Levofloxacin/D5w [Levaquin 750 mg/150 ml D5w] MEDS 01/23/21 11:30 Ordered 750 mg in 150 ml IV DAILY Ondansetron HCl/Pf [Zofran 4 mg/2 ml] MEDS 01/23/21 07:45 Discontinued 4 mg IVP ONCE STA Ondansetron HCl/Pf [Zofran 4 mg/2 ml] MEDS 01/23/21 11:30 Active 4 mg IVP Q8H Sodium Chloride 0.9% [Sodium Chloride] 1,000 ml MEDS 01/23/21 11:30 Active IV 100 mls/hr Sodium Chloride 0.9% [Sodium Chloride] 1,000 ml MEDS 01/23/21 09:49 Active IV 125 mls/hr Sodium Chloride 0.9% [Sodium Chloride] 500 ml MEDS 01/23/21 07:45 Discontinued IV BOLUS Sodium Chloride 0.9% [Sodium Chloride] 500 ml MEDS 01/23/21 10:26 Discontinued IV BOLUS CHEST, 1V AP ONLY Stat RADS 01/23/21 07:[address] ABDOMEN/PELVIS W CONTRAST Stat RADS 01/23/21 09:[address] CHEST W/CONTRAST Stat RADS 01/23/21 08:48 Taken Medications Generic Name Dose Route Start Last Admin Trade Name Freq PRN Reason Stop Dose Admin Acetaminophen 650 mg 01/23/21 11:10 Acetaminophen 325 Mg Tablet PO Q8H PRN Mild/Moderate Pain Albuterol Sulfate 2 puff 01/23/21 14:00 Albuterol Sulfate (Ventolin Hfa) 18 Gm 1 Puff With Spacer IH RTQID DEONDRE Sodium Chloride 1,000 mls @ 125 mls/hr 01/23/21 09:49 Sodium Chloride IV 01/23/21 17:48 .Q8H STA Sodium Chloride 1,000 mls @ 100 mls/hr 01/23/21 11:30 Sodium Chloride IV .Q10H DEONDRE Levofloxacin/Dextrose 750 mg in 150 mls @ 100 mls/hr 01/23/21 11:30 Levaquin 750 Mg/150 Ml D5w IV 01/26/21 11:29 DAILY DEONDRE Ceftazidime 2 gm/ Sodium 50 mls @ 50 mls/hr 01/24/21 09:00 Chloride IV 01/27/21 08:59 Q8HR DEONDRE Ondansetron HCl 4 mg 01/23/21 11:30 Ondansetron Hcl/Pf 4 Mg/2 Ml Sdv IVP Q8H DEONDRE Sodium Chloride 1 syr 01/23/21 07:45 01/23/21 09:50 0.9% Sodium Chloride 10 Ml Disp.Syrin IVF 1 syr PRN PRN Administration To flush IV Discontinued Medications Generic Name Dose Route Start Last Admin Trade Name Freq PRN Reason Stop Dose Admin Acetaminophen 650 mg 01/23/21 07:45 01/23/21 08:08 Acetaminophen 325 Mg Tablet PO 01/23/21 07:46 650 mg ONCE STA Administration Azithromycin 500 mg 01/23/21 10:11 01/23/21 10:38 Azithromycin 250 Mg Tablet PO 01/23/21 10:12 500 mg ONCE STA Administration Clonidine 0.2 mg 01/23/21 07:45 01/23/21 08:07 Clonidine Hcl 0.1 Mg Tablet PO 01/23/21 07:46 0.2 mg ONCE STA Administration Sodium Chloride 500 mls @ 500 mls/hr 01/23/21 07:45 01/23/21 08:08 Sodium Chloride IV 01/23/21 08:44 500 mls/hr BOLUS STA Administration CEFTRIAXONE/D5W 1 GM PREMIX 1 gm in 50 mls @ 75 mls/hr 01/23/21 08:33 01/23/21 08:46 Rocephin 1 Gm/50 Ml D5w IV 01/23/21 09:12 75 mls/hr ONCE STA Administration Sodium Chloride 500 mls @ 500 mls/hr 01/23/21 10:26 Sodium Chloride IV 01/23/21 11:25 BOLUS STA Ibuprofen 800 mg 01/23/21 07:45 01/23/21 08:08 Ibuprofen 400 Mg Tablet PO 01/23/21 07:46 800 mg ONCE STA Administration Ondansetron HCl 4 mg 01/23/21 07:45 01/23/21 08:08 Ondansetron Hcl/Pf 4 Mg/2 Ml Sdv IVP 01/23/21 07:46 4 mg ONCE STA Administration Imaging: CXR: IMPRESSION: 1. No acute cardiopulmonary process. 2. Nonspecific right hilar prominence, which could represent vascular summation artifact versus adenopathy or neoplasm. CT chest with IV contrast can further evaluate. CT Chest/abd/pelvis: CT chest: No right hilar mass. The abnormality on prior radiographs is likely related to superimposition of vascular structures. Sub centimeter mediastinal and hilar lymph nodes which are not pathologic by size criteria. Cardiomegaly and atherosclerotic vascular disease as described. Dependent atelectasis. Patchy ground-glass opacities in the lower lobes bilaterally may represent superimposed mild pneumonitis/pneumonia. Clinical correlation is recommended. 0.5 cm subpleural nodule laterally in the right lung base. Recommend follow-up CT chest in [address] abdomen/pelvis: Atherosclerotic vascular disease. No evidence of bowel obstruction. Normal appendix. Moderate amount of well- formed stool. Mild to moderate right hydronephrosis without definite obstructing radiopaque calculus. Suspected urothelial enhancement. Wall thickening of the urinary bladder. Correlate clinically for signs of cystitis/pyelonephritis or recent stone passage. Question small left renal cyst. Cholelithiasis. Correlate clinically for signs of acute cholecystitis. Additional chronic / degenerative changes as described. Assessment (1) Fever: Status: Acute Code(s): R50.9 - Fever, unspecified SNOMED Code(s): 547266328 (2) SIRS (systemic inflammatory response syndrome): Status: Acute Code(s): R65.10 - Systemic inflammatory response syndrome (SIRS) of non-infectious origin without acute organ dysfunction SNOMED Code(s): 484518278 (3) Pyelonephritis: Status: Acute Code(s): N12 - Tubulo-interstitial nephritis, not specified as acute or chronic SNOMED Code(s): 91292146 (4) Non-Angolan speaking patient: Status: Acute Code(s): Z78.9 - Other specified health status SNOMED Code(s): 923768259 (5) Pneumonia: Status: Acute Code(s): J18.9 - Pneumonia, unspecified organism SNOMED Code(s): 168579345 (6) Pleural nodule: Status: Acute Code(s): R22.2 - Localized swelling, mass and lump, trunk SNOMED Code(s): 418043983 (7) Hyperglycemia: Status: Acute Code(s): R73.9 - Hyperglycemia, unspecified SNOMED Code(s): 66035034 (8) Leukocytosis: Status: Acute Code(s): D72.829 - Elevated white blood cell count, unspecified SNOMED Code(s): 910364428 Plan Plan: Pyelonephritis/Fever/Nausea/Vomiting/SIRS/Pneumonia: At present, I feel that the patient has more of a pyelonephritis/urosepsis picture than one of pneumonia. She awoke this am and felt poorly. She now has a port score of 92 which is a Risk Class IV 8.2-93.% Mortality. Recommended hospitalization as inpatient status based on her history. She has poor f/u with providers, similar presentation 6 months ago. Unknown what was done for her there. There is ? about biliary process. She has no RUQ pain, no ortega. Lipase was negative. At this time we will treat empirically to cover for CAP and to cover for pseudomonas. She has no strong risk factors for MRSA (no known colonization, awaiting sputum culture, no IV abx last 3 monhts, no recent URI, no cavitary pneumonia, no empyema, no ESRD, no other factors). Regarding pseudomonal risk factors similar factors are true but limited history in this case would suggest that cefepimr and levaquin would be a good choice. I will not use vanco at this time. She did have emesis x 2. No reported aspiration. We do not know much about her history. Son provided a brief amounnt. I am covering more for urological sepsis at this time than I am for pneumonia. I will start with cefepime and levaquin as noted dosed on Crcl as this should cover for most of the organisms that would affect her. If fever present/returns through the night consider changing to invanz. However, based on her presentation and already feeling markedly better, I am content with the current regimen. Will f/u with her in the am. Pharmacy called me at 1248 noting that fortaz was ordered not cefepime. I have reviewed likely microbial agents. She has met Sepsis criteria, she has received the fluid bolus. She was given clonidine which caused BP to drop. WIll continue to fluid hydrate. Monitor for changes. UA showed 3+ protein, trace blood, Nit +, trace LE, bact 3+. At present we will treat for this as primary concern. 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 NC to keep O2 >90% <98% - CBC/CMP repeat in am - anticoag with lovenox. - F/U with patient again in am 01/24/21 - R/B/A to meds d/w patient and son, SE reviewed, - Consider change of antibiotic therapy if febrile, worsening, etc. For now treat for CAP. - Fluid hydration 95-100ml/hour. - Await blood and urine cultures. - Awat labs in am tomorrow. Leukocytosis: Neutrophilia predominant. Repeat CBC in am. Await blood culture. Hyperglycemia: A1C ordered. Hypotension: Presented in Hypertension, no hypotensive likely as result of clonidine 0.2mg. Fluid hydration, monitor for symptoms. No routine meds at home. Pleural Nodule: 0.5cm noted right lung base. Recommended outpatient f/u in 1 year. At present continue to monitor. DVT Prophy: Lovenox 40mg daily. CrCl of 47 ml/min. No dosage change needed. Diet: Regular CODE: full Nursing: Fall precaution Disposition: Plan to keep at least 24 hours. Patient wanted to go home but son and I were able to discuss with her need to stay. + Lactic acid, negative procalc, + SIRS criteria and urological s/sx of infection. BC pending, Urine culture pending. UA suggestive of URINARY infection. CT suggests pyelo on right. I have started her on cefepime and levaquin to cover for CAP (+pseudomonas), as well as pyelo. Based on reduced Crcl of 47ml/min I have used cefepime q 8 and levaquin q 48 hours. We will hydrate her 95-100 ml/hour. Pharmacy called and noted that we had suggested cefepime. However, fortaz was ordered. They wished to clarify, I discussed the case with them. Attempted to call the son back at 1300 to discuss case with him again. Unable to leave .
[2021-01-23] MEDS ORDERED: FORTAZ IV SCH (13:00)
[2021-01-23] MEDS ORDERED: SODIUM CHLORIDE IV SCH (13:00)
[2021-01-23] MEDS: SODIUM CHLORIDE 1,000 ML IV SCH (13:40)
[2021-01-23] MEDS: LOVENOX SUBCUT SCH (13:46)
[2021-01-23] MEDS: ZOFRAN 4 MG/2 ML IVP SCH ×2 (13:50→19:42)
[2021-01-23] MEDS: VENTOLIN HFA (PER PUFF-WITH SPACER) IH SCH ×2 (14:34→19:40)
[2021-01-23] MEDS: MAXIPIME 2 GM/50 ML D5W 2 GM/50 ML BAG IV SCH (20:19)
[2021-01-24] MEDS: SODIUM CHLORIDE 1,000 ML IV SCH ×2 (00:04→11:19)
[2021-01-24] MEDS: ZOFRAN 4 MG/2 ML IVP SCH ×2 (03:51→12:15)
[2021-01-24] MEDS: VENTOLIN HFA (PER PUFF-WITH SPACER) IH SCH ×3 (04:50→14:07)
[2021-01-24 05:41] LABS: BASOPHILS % (AUTO) 0.4 % (0.0-3.0); EOSINOPHILS # (AUTO) 0.2 K/ul (0.0-0.7); EOSINOPHILS % (AUTO) 1.6 % (0.0-7.0); HEMATOCRIT 31.7 % (37.0-47.0); HEMOGLOBIN 10.3 g/dl (12.0-16.0); IMMATURE GRANULOCYTE % (AUTO) 0.2 % (0.0-5.0); LYMPHOCYTES # (AUTO) 2.1 K/uL (0.60-3.4); LYMPHOCYTES % (AUTO) 21.5 (10.0-50.0); MEAN CORPUSCULAR HEMOGLOBIN 28.4 pg (27.0-31.0); MEAN CORPUSCULAR HGB CONC 32.5 (31.8-35.4); MEAN CORPUSCULAR VOLUME 87.3 fl (81.0-99.0); MONOCYTES # (AUTO) 0.8 K/uL (0.4-2.0); NEUTROPHILS # (AUTO) 6.7 K/ul (2.0-6.9); NEUTROPHILS % (AUTO) 68.3 % (42.2-75.2); PLATELET COUNT 186 10^3/uL (140-440); RDW COEFFICIENT OF VARIATION 13.4 % (11.6-14.8); RED BLOOD COUNT 3.63 10^6/ul (4.20-5.40); WHITE BLOOD COUNT 9.86 K/ul (4.6-10.2)
[2021-01-24 05:54] LABS: ALANINE AMINOTRANSFERASE 68.5 U/L (0-35); ALBUMIN 3.39 g/dL (3.5-5.0); ALKALINE PHOSPHATASE 55.4 U/L (53-141); ASPARTATE AMINO TRANSFERASE 75.5 U/L (14-36); BILIRUBIN,TOTAL 0.56 mg/dL (0.2-1.3); CALCIUM 8.11 mg/dL (8.4-10.2); CHLORIDE 111.2 mmol/L (98-107); CREATININE 0.74 mg/dL (0.60-1.30); GLUCOSE 130.7 mg/dL (74-106); POTASSIUM 4.16 mmol/L (3.5-5.1); SODIUM 138.9 mmol/L (134.5-145); TOTAL PROTEIN 6.75 g/dL (6.3-8.2)
--- NOTE | 2021-01-24 07:20 | PCM.PROG ---
Date Seen by Provider: 01/24/21 Time Seen by Provider: 07:05 Subjective: 85 yo [place]ian Female presented to ED yesterday 01/24/21 with fever, N/V, chills. She was found to have SIRS w/ suspected Urosepsis and pneumonia. BC and UC pending. Presented w/ marked HTN and tachycardia and was given clonidine in ED and then had drop in BP. She has remained afebrile since ED checks at 0731 yesterday am. 11:39 vitals were duplicates. HR 72-18 except for one reading of 103 at 2148. BP has been on the lower end since clonidine in ED x 1. She is mildly elevated this am at 145/78 but based on age we can tolerate <150 SBP. RR 16-18. o2 95-99% except one reading of 88%. She is on 2L o2 through night, 97% this am on RA. Telemetry reviewed and she remained in SR througout the night. Labs this am showed WBC has dropped from 11.21 to 9.86. Hgb from 12.9 to 10.3, plt 228 to 186. This appears to be a dilutional affect. Her differential on CBC was completely normal. Chemistry this am showed sodium 138.9, K+ 4.16, cl 111.2, bun 18, creatinine 0.74 and stable, GFR 74. Glucose was 130.7 this am. A1C did return 7.47 which is diabetic state. However based on age, we can accept up to 8% in this patient. This should be addressed as an outpatient. Liver enzymes did increase from 28.4 AST/16.3 ALT to 75.5 and 68.5. The GB did have e/o stones. We will monitor this process as it may also be transient. She is not on any home meds. Albumin low at 3.39 and clacium appeared a little low as well at 8.11. However, corrected calcium was normal at 8.6 based on corrected calcium formula. Blood and urine cultures remain pending at the time of documentation. Overnight eval by nursing. 1737 some confusion from patient, barrier with language. Son was allowed to sit with patient to assist with language barrier. ALISIA Ewing 21:59 01/23/21 up to bathroom. Generalized weakness unsteady at times. Concepcion urine. Afebrile. No Nausea/fever/chills. Zofran and abx doing well. Note 0536 01/24/21. Communicating better with patient. Talking with son PRN. This am the patient has no c/o. Total intake 1674 ml and output 925ml. She is feeling better, ate 75% of dinner. No reported headache, no fever, no vision changes, no loss of taste/smell, No new URI symptoms, reviewed allergy symptoms, no cough/congestion/wheezing/SOA, No CP, no reported fatigue, no abd pain, no N/V/D, no constipation, no changes in urination/stooling, no new MSK pain except as above, no recent injuries except as listed above. Falls reviewed and listed above. Patient feels well and wants to go home. Based on vitals, afebrile status, I think this is a reasonable consideration for tomorrow am. I suspect pyelonephritis and levaquin should be a reasonable choice. At this time plan to d/c tomorrow per son/patient wishes. 8 minute conversation using [employer] in speaker phone format with son as planning specialist. They did not want language line. Patient has no c/o. Son talked with sister, similar event before. He asked about her kidneys, I noted infection was present. I noted she is on abx. I noted that her liver enzymes were elevated and she has now met criteria for DM. They want to go home today, adamant that she does not want to stay, she is bored, does not want to be here any longer than she has to. No c/o, no abd swati n, no chest pain, no SOA. She denied weakness, SELLERS, denied any concern. I noted if she still feels the same around lunch/this afternoon we will get her home this night. I would like to have some guidance from urine culture. Urine culture showed heavy G- Rods as of 941 suggesting that as the source for her pyelo/infection and less likely pneumonia. levaquin/cefdinir should be okay to d/c patient home on and will adjust based on return of culture and sensitivity data. REVIEW OF SYMPTOMS: (Positives bolded) General: weight loss, fever, chills, night sweats, fatigue, appetite loss HEENT: blurry vision, eye pain, eye discharge, dry eyes, decreased vision, sore throat tinnitus, bloody nose, hearin gloss, sinus pain/pressure, ear pain/pressure. Respiratory: shortness of breath, cough, hemoptysis, wheezing, pleurisy, Cardiovascular: chest pain, PND, palpitation, edema, orthopnea, syncope, swelling of extremities Gastro: Nausea, vomiting, diarrhea, hematemesis, abdominal pain, constipation Genito: hematuria, dysuria, glycosuria, hesitancy, frequency, incontinence Musckelo: Arthralgia, myalgia, muscle weakness, joint swelling, NSAID use Skin: rash, pruritis, sores, nail changes, skin thickening, change in wart/mole, itching, rash, new lesions, pruritus, nail changes Neuro: Migraine, numbness, ataxia, tremor, vertigo, weakness, memory loss, Irritability, dizziness Endocrine: excessive thirst, polyuria, cold intolerance, heat intolerance, goiter Psychiatric: depression, anxiety, anti-depressants, alcohol abuse, drug abuse, insomnia, change in sleep pattern and mood changes Heme/lymph: easy bruising, bleeding gums, blood clots, swollen glands, lymphedema, Allergic/immune: allergic rhinitis, hay fever, asthma, hives Objective: Vital Signs - 24 hr 01/23/21 11:39 01/23/21 12:18 01/23/21 12:27 Temperature 102.5 F H 99.6 F Pulse Rate 115 H 78 Respiratory Rate 22 18 Blood Pressure 198/93 H 84/49 L 94/51 L O2 Sat by Pulse Oximetry 96 94 L 01/23/21 12:58 01/23/21 14:00 01/23/21 14:14 Temperature 98.6 F 98.6 F Pulse Rate 74 74 Respiratory Rate 18 18 Blood Pressure 87/51 L O2 Sat by Pulse Oximetry 96 96 88 L 01/23/21 17:27 01/23/21 19:54 01/23/21 21:48 Temperature 98.8 F 99.4 F Pulse Rate 72 103 H Respiratory Rate 16 16 18 Blood Pressure 97/52 L 131/73 O2 Sat by Pulse Oximetry 99 95 01/24/21 05:20 01/24/21 05:32 Temperature 97.5 F L Pulse Rate 78 Respiratory Rate 16 Blood Pressure 145/78 H O2 Sat by Pulse Oximetry 99 97 Constitutional: Appearance-No acute distress, Resting eyes closed. Opens eyes to command. GCS 15. Language Panamanian, non craig Ukrainian speaker. Son as planning specialist via phone. Offered language line, he would like that in future, but now he is happy to translate. Consistent with stated age. Orientation- Oriented x 3, aware of name, sunday, [facility], january. Build and Nutrition-normal BMI 22.9 General- Patient is pleasant and cooperative with the interview and exam. She was able to understand some greek phrases and commands. Integumentary: General-No rashes, ulcers or lesions. Palpation- Normal skin moisture/turgor. Skin is warm to touch, appropriate. Capillary refill is normal bilateral Upper and lower extremity. Scaring bilateral anterior shins. Head/Neck: Head- normocephalic and atraumatic. Neck- without visible/palpable lumps or pulsations. Palpation- No bony tenderness about head/neck along frontal, occipital, temporal, parietal, mastoid, jawline, zygoma, orbit or any other location. NO temporal artery tenderness. No TMJ tenderness. Neck Supple. Thyroid-No thyromegaly, no nodules Eye: Bilaterally PERRLA, EOMI. No discharge. Upper and lower eyelids are normal. Sclera/conjunctiva normal without discharge. Cornea is normal and clear. Lens is normal. Eyeball appears normal. No ciliary flushing, no conjunctival injection. ENMT: Nose and sinus- No sinus tenderness along frontal/maxillary region. External appearance normal and midline. Nares- bilateral quiet airflow, no discharge. Nasal mucosa- No bleeding noted and no ulcerations observed. [place], moist. Turbinates non boggy. Lips- normal color, moist without cracks/lesions Or al Cavity/Palate- hard/soft palate intact without lesions, oral mucosa pink and moist. Tongue normal midline. Oropharynx- no pharyngeal erythema, Uvula midline. No post nasal drip. No exudate. Salivary glands- Non tender to palpation CHEST/LUNG: Inspection- symmetric chest wall no pectus deformity. Normal effort, no distress, no use of accessory muscles. Palpation- nontender sternum, ribline. No abnormal pulsations. Auscultation- Breath sounds normal throughout all lung shah. Normal tracheal sounds, Normal bronchial sounds overlying sternum, Bronchovessicular sounds coarse and reduced between scapulae posteriorly, similar for vessicular breath sounds heard throughout periphery. Lungs are mostly clear except mild crackling at the bases. Adventitious sounds- No wheezes, no rhonchi, rales as listed. Shallow inspiration. Coughed x 1 cleared. Biofire negative for COVID. CARDIOVASCULAR: Carotid artery- normal, no bruits or abnormal pulsations. Jugular vein- no pulsations. Palpation/Percussion- Normal PMI, no palpable thrill Auscultation- Regular rate and rhythm. No murmur noted in sitting, supine positions. Extremities- no digital clubbing, cyanosis, edema, increased warmth. No appreciable murmur. ABDOMEN: Inspection- normal and no visible pulsations. Normal contour. Auscultation- Bowel sounds normal, no abdominal bruits. Palpation/Percussion- soft, non-tender all Quadrants, no rebound tenderness, no rigidity (guarding), no jar tenderness, no masses. CVA tenderness - bilaterally this am. Mcburney negative, ortega negative. Peripheral Vascular: Upper extremity Left- Normal temperature with pink nailbeds and no ulcerations. Upper extremity Right- Normal temperature with pink nailbeds and no ulcerations. Lower extremity- Normal temperature with pink nailbeds and no ulcerations. DP pulses 2+ bilaterally. Pedal hair intact. Normal capillary refill. Edema- No edema. Musculoskeletal: Generalized-No generalized swelling or edema of extremities, no digital clubbing or cyanosis, neurovascularly intact all four extremities. Neurological: General- Moves all 4 extremities symmetrically. Symmetrical face and body posture. Cranial nerves- individually evaluated II-XII and intact. PERRLA, Normal EOMI, visual/special senses appear intact, Face is symmetrical and normal sensation/movement, normal tongue, normal strength/posture of neck musculature. Strength- 5/5 bilateral UE and LE. Soft touch- intact bilateral UE and LE. Temperature sensation- intact bilateral UE and LE. Neuropsych: Oriented- Person, place, time. (AAOx3), Mood/affect- normal and congruent. Able to articulate well. Speech-Normal speech, Panamanian, some greek. Talked with son today. Normal, baseline. language barrier. She has age appropriate understanding. Lymphatic: Head/Neck- normal size and non tender to palpation. No peripheral edema. Laboratory Results - last 24 hr 01/23/21 01/23/21 01/23/21 08:05 08:05 08:05 WBC RBC Hgb Hct MCV MCH MCHC RDW Coeff of Kumar Plt Count Immature Gran % (Auto) Neut % (Auto) Lymph % (Auto) [place] % (Auto) Eos % (Auto) Baso % (Auto) Neut # (Auto) Lymph # (Auto) [place] # (Auto) Eos # (Auto) Baso # (Auto) Immature Gran # (Auto) Sodium Potassium Chloride Carbon Dioxide Anion Gap BUN Creatinine Estimated GFR (MDRD) BUN/Creatinine Ratio Glucose Hemoglobin A1c Lactic Acid Calcium Total Bilirubin AST ALT Alkaline Phosphatase Troponin I Total Protein Albumin Globulin Albumin/Globulin Ratio Lipase 149.0 Procalcitonin Urine Color Yellow Urine Clarity Cloudy Urine pH 6.5 Ur Specific [facility] >=1.030 Urine Protein 3+ H Urine Glucose (UA) Negative Urine Ketones Negative Urine Blood Trace-intact H Urine Nitrite Positive H Urine Bilirubin Negative Urine Urobilinogen 0.2 Ur Leukocyte Esterase Trace H Urine Microscopic RBC 5-10 Urine Microscopic WBC 30-50 Ur Squamous Epith Cells 2-5 Amorphous Sediment 3+ Urine Bacteria 3+ Adenovirus (PCR) B. pertussis DNA (PCR) B.parapertussis DNA PCR C. pneumoniae DNA (PCR) Coronavirus OC43 (PCR) Coronavirus HKU1 (PCR) Coronavirus 229E (PCR) Coronavirus NL63 (PCR) Human Metapneumovir PCR Influenza Type A (PCR) Influ A Molecular Assay Negative by naat Influenza B (RT-PCR) Influ B Molecular Assay Negative by naat M. pneumoniae (PCR) Parainfluenza 1 (PCR) Parainfluenza 2 (PCR) Parainfluenza 3 (PCR) Parainfluenza 4 (PCR) RSV (PCR) Entero/Rhino (PCR) SARS-CoV-2 (PCR) SARS-CoV-2 Ag (Rapid) 01/23/21 01/23/21 01/23/21 08:05 08:05 08:08 WBC 11.21 H RBC 4.56 Hgb 12.9 Hct 39.3 MCV 86.2 MCH 28.3 MCHC 32.8 RDW Coeff of Kumar 12.9 Plt Count 228 Immature Gran % (Auto) 0.5 Neut % (Auto) 89.7 H Lymph % (Auto) 7.6 L [place] % (Auto) 1.0 Eos % (Auto) 0.9 Baso % (Auto) 0.3 Neut # (Auto) 10.1 H Lymph # (Auto) 0.9 [place] # (Auto) 0.1 L Eos # (Auto) 0.1 Baso # (Auto) 0.0 Immature Gran # (Auto) 0.1 Sodium Potassium Chloride Carbon Dioxide Anion Gap BUN Creatinine Estimated GFR (MDRD) BUN/Creatinine Ratio Glucose Hemoglobin A1c 7.47 H Lactic Acid Calcium Total Bilirubin AST ALT Alkaline Phosphatase Troponin I Total Protein Albumin Globulin Albumin/Globulin Ratio Lipase Procalcitonin 0.48 Urine Color Urine Clarity Urine pH Ur Specific [facility] Urine Protein Urine Glucose (UA) Urine Ketones Urine Blood Urine Nitrite Urine Bilirubin Urine Urobilinogen Ur Leukocyte Esterase Urine Microscopic RBC Urine Microscopic WBC Ur Squamous Epith Cells Amorphous Sediment Urine Bacteria Adenovirus (PCR) B. pertussis DNA (PCR) B.parapertussis DNA PCR C. pneumoniae DNA (PCR) Coronavirus OC43 (PCR) Coronavirus HKU1 (PCR) Coronavirus 229E (PCR) Coronavirus NL63 (PCR) Human Metapneumovir PCR Influenza Type A (PCR) Influ A Molecular Assay Influenza B (RT-PCR) Influ B Molecular Assay M. pneumoniae (PCR) Parainfluenza 1 (PCR) Parainfluenza 2 (PCR) Parainfluenza 3 (PCR) Parainfluenza 4 (PCR) RSV (PCR) Entero/Rhino (PCR) SARS-CoV-2 (PCR) SARS-CoV-2 Ag (Rapid) 01/23/21 01/23/21 01/23/21 08:08 08:08 08:08 WBC RBC Hgb Hct MCV MCH MCHC RDW Coeff of Kumar Plt Count Immature Gran % (Auto) Neut % (Auto) Lymph % (Auto) [place] % (Auto) Eos % (Auto) Baso % (Auto) Neut # (Auto) Lymph # (Auto) [place] # (Auto) Eos # (Auto) Baso # (Auto) Immature Gran # (Auto) Sodium 138.9 Potassium 4.31 Chloride 104.4 Carbon Dioxide 22.1 Anion Gap 16.71 BUN 20.3 H Creatinine 0.76 Estimated GFR (MDRD) 72.00 BUN/Creatinine Ratio 26.71 Glucose 205.0 H Hemoglobin A1c Lactic Acid 2.63 H Calcium 9.51 Total Bilirubin 0.41 AST 28.4 ALT 16.3 Alkaline Phosphatase 65.6 Troponin I 0.044 Total Protein 8.25 H Albumin 4.37 Globulin 3.88 Albumin/Globulin Ratio 1.12 Lipase Procalcitonin Urine Color Urine Clarity Urine pH Ur Specific [facility] Urine Protein Urine Glucose (UA) Urine Ketones Urine Blood Urine Nitrite Urine Bilirubin Urine Urobilinogen Ur Leukocyte Esterase Urine Microscopic RBC Urine Microscopic WBC Ur Squamous Epith Cells Amorphous Sediment Urine Bacteria Adenovirus (PCR) B. pertussis DNA (PCR) B.parapertussis DNA PCR C. pneumoniae DNA (PCR) Coronavirus OC43 (PCR) Coronavirus HKU1 (PCR) Coronavirus 229E (PCR) Coronavirus NL63 (PCR) Human Metapneumovir PCR Influenza Type A (PCR) Influ A Molecular Assay Influenza B (RT-PCR) Influ B Molecular Assay M. pneumoniae (PCR) Parainfluenza 1 (PCR) Parainfluenza 2 (PCR) Parainfluenza 3 (PCR) Parainfluenza 4 (PCR) RSV (PCR) Entero/Rhino (PCR) SARS-CoV-2 (PCR) SARS-CoV-2 Ag (Rapid) Negative 01/23/21 01/24/21 01/24/21 11:10 05:09 05:09 WBC 9.86 RBC 3.63 L Hgb 10.3 L Hct 31.7 L D MCV 87.3 MCH 28.4 MCHC 32.5 RDW Coeff of Kumar 13.4 Plt Count 186 Immature Gran % (Auto) 0.2 Neut % (Auto) 68.3 Lymph % (Auto) 21.5 [place] % (Auto) 8.0 Eos % (Auto) 1.6 Baso % (Auto) 0.4 Neut # (Auto) 6.7 Lymph # (Auto) 2.1 [place] # (Auto) 0.8 Eos # (Auto) 0.2 Baso # (Auto) 0.0 Immature Gran # (Auto) 0.0 Sodium 138.9 Potassium 4.16 Chloride 111.2 H Carbon Dioxide 22.0 Anion Gap 9.86 BUN 18.0 H Creatinine 0.74 Estimated GFR (MDRD) 74.00 BUN/Creatinine Ratio 24.32 Glucose 130.7 H D Hemoglobin A1c Lactic Acid Calcium 8.11 L Total Bilirubin 0.56 AST 75.5 H D ALT 68.5 H D Alkaline Phosphatase 55.4 Troponin I Total Protein 6.75 Albumin 3.39 L Globulin 3.36 Albumin/Globulin Ratio 1.00 Lipase Procalcitonin Urine Color Urine Clarity Urine pH Ur Specific [facility] Urine Protein Urine Glucose (UA) Urine Ketones Urine Blood Urine Nitrite Urine Bilirubin Urine Urobilinogen Ur Leukocyte Esterase Urine Microscopic RBC Urine Microscopic WBC Ur Squamous Epith Cells Amorphous Sediment Urine Bacteria Adenovirus (PCR) Not detected B. pertussis DNA (PCR) Not detected B.parapertussis DNA PCR Not detected C. pneumoniae DNA (PCR) Not detected Coronavirus OC43 (PCR) Not detected Coronavirus HKU1 (PCR) Not detected Coronavirus 229E (PCR) Not detected Coronavirus NL63 (PCR) Not detected Human Metapneumovir PCR Not detected Influenza Type A (PCR) Not detected Influ A Molecular Assay Influenza B (RT-PCR) Not detected Influ B Molecular Assay M. pneumoniae (PCR) Not detected Parainfluenza 1 (PCR) Not detected Parainfluenza 2 (PCR) Not detected Parainfluenza 3 (PCR) Not detected Parainfluenza 4 (PCR) Not detected RSV (PCR) Not detected Entero/Rhino (PCR) Not detected SARS-CoV-2 (PCR) Not detected SARS-CoV-2 Ag (Rapid) No New imaging as of 01/24/21 Cultures: BC Pending Sputum Pending Urine culture pending (1) Fever: Status: Acute Code(s): R50.9 - Fever, unspecified SNOMED Code(s): 427009981 (2) SIRS (systemic inflammatory response syndrome): Status: Acute Code(s): R65.10 - Systemic inflammatory response syndrome (SIRS) of non-infectious origin without acute organ dysfunction SNOMED Code(s): 919211110 (3) Pyelonephritis: Status: Acute Code(s): N12 - Tubulo-interstitial nephritis, not specified as acute or chronic SNOMED Code(s): 72881422 (4) Non-Ukrainian speaking patient: Status: Acute Code(s): Z78.9 - Other specified health status SNOMED Code(s): 216603788 (5) Pneumonia: Status: Acute Code(s): J18.9 - Pneumonia, unspecified organism SNOMED Code(s): 808893397 (6) Pleural nodule: Status: Acute Code(s): R22.2 - Localized swelling, mass and lump, trunk SNOMED Code(s): 156822212 (7) Hyperglycemia: Status: Acute Code(s): R73.9 - Hyperglycemia, unspecified SNOMED Code(s): 85124917 (8) Leukocytosis: Status: Acute Code(s): D72.829 - Elevated white blood cell count, unspecified SNOMED Code(s): 393057541 Plan: Pyelonephritis/Fever/Nausea/Vomiting/SIRS/Pneumonia: At present, patient is feeling much better. I still feel that the patient has more of a pyelonephritis/urosepsis picture than one of pneumonia. Urine culture returned + Heavy Grem - Rods. Levaquin/cefdinir should cover that and would cover for most causes of pneumonia. She feels fine, no abd pain, eating/drinking/urinating w/o complication. She is bored, she desires to go home. I talked with son this am about concern about d/c too soon. He is aware. Patient is not following with regular provider. I can see her in office this at 11:00. VSS, afebrile now 24 hours. Tolerating PO, she is AAOx3 and no MS changes noted. Language barrier is present. Offered language line, declined. Son translated for mother. I discussed the concern for pneumonia, concern for pyelo and sepsis. All cell lines decreased likely from fluid hydration and dilution. She feels fine, wants to go home. I have agreed to this evening vs. tomorrow am for d/c. They want this pm. - Admit to inpatient service bed monitored bed based on age, port score and concern sepsis. - Language line planning specialist services d/w family. - Telemetry - Vitals q 8 hours - Monitor for need for O2. NC to keep O2 >90% <98% - CBC/CMP repeat in am - anticoag with lovenox. - F/U with patient again in am 01/25/21 if she chooses to remain in hospital, else d/c this afternoon. - R/B/A to meds d/w patient and son, SE reviewed, - Consider change of antibiotic therapy if febrile, worsening, etc. For now treat for CAP. - Fluid hydration 95-100ml/hour. - Await blood and urine cultures. - Awat labs in am tomorrow. Leukocytosis: Resolved. Transaminitis: New problem. CT yesterday showed Cholelithiasis. She had fever. Cholecytitis was on ddx. However, she has no RUQ pain, no epigastric pain. Today she has no c/o at all. She is on lovenox. This can cause liver enzymes to elevated. She has dilutional effect of her cell lines. We will monitor. Would like repeat CMp in am tomorrow. - CMP tomorrow. Diabetes 2 A1C goal <8%: A1C ordered and found to be 7.86. At this time no further w/u needed. I would not start meds for her. Would monitor. She may benefit from statin, she likely will not take it based on age. Would like to f/u and discuss more as an OP. Hypotension: Resolved. Now stable. BP goal <150/90 based on JNC 8. Not on meds at this time. Pleural Nodule: 0.5cm noted right lung base. Recommended outpatient f/u in 1 year. At present continue to monitor. DVT Prophy: Lovenox 40mg daily. CrCl of 47 ml/min. No dosage change needed. Diet: Regular CODE: full Nursing: Fall precaution Disposition: She is doing much better. They do not want to stay in hospital any longer. I asked for her to remain until at least around lunch hour to make sure that she is still doing okay. Patient and son note that she is doing fine and they want to go home. Reviewed the above with son, he relayed info to mother (patient). Plan to keep at least 24 hours. Patient wanted to go home but son and I were able to discuss with her need to stay. They adamantly wanted to leave after dinner tonight. 37 minutes spent on rounding today.
[2021-01-24] MEDS ORDERED: FORTAZ IV SCH (09:00)
[2021-01-24] MEDS ORDERED: SODIUM CHLORIDE IV SCH (09:00)
[2021-01-24] MEDS: LOVENOX SUBCUT SCH (09:26)
[2021-01-24] MEDS: MAXIPIME 2 GM/50 ML D5W 2 GM/50 ML BAG IV SCH (09:29)
[2021-01-24 13:22] VITALS: BP 126/69; TEMP 99
--- NOTE | 2021-01-24 16:32 | PCM.DC ---
Final Diagnosis: 1. Pyelonephritis with SIRS 2. Pneumonia 3. Fever 4. Nausea/Vomiting 5. Pulmonary Nodule: F/U in 1 year with imaging 4. Cholelithiasis possible cholecystitis 5. New onset/DX DM 2. A1C goal <8%. No medications. Address as outpatient. 6. Non Ho-Chunk Salvadorean user. 7. Transaminnitis 8. Normocytic Anemia. (1) Fever: Status: Acute Code(s): R50.9 - Fever, unspecified SNOMED Code(s): 089767512 (2) SIRS (systemic inflammatory response syndrome): Status: Acute Code(s): R65.10 - Systemic inflammatory response syndrome (SIRS) of non-infectious origin without acute organ dysfunction SNOMED Code(s): 629585066 (3) Pyelonephritis: Status: Acute Code(s): N12 - Tubulo-interstitial nephritis, not specified as acute or chronic SNOMED Code(s): 59123849 (4) Non-Salvadorean speaking patient: Status: Acute Code(s): Z78.9 - Other specified health status SNOMED Code(s): 918315728 (5) Pneumonia: Status: Acute Code(s): J18.9 - Pneumonia, unspecified organism SNOMED Code(s): 913833956 (6) Pleural nodule: Status: Acute Code(s): R22.2 - Localized swelling, mass and lump, trunk SNOMED Code(s): 390710780 (7) Hyperglycemia: Status: Acute Code(s): R73.9 - Hyperglycemia, unspecified SNOMED Code(s): 80695596 (8) Leukocytosis: Status: Acute Code(s): D72.829 - Elevated white blood cell count, unspecified SNOMED Code(s): 194478090 Reason for Hospitalization: 1. Fever, Nausea, vomiting, Flank pain on right. SIRS +. Dx with Pyelonephritis and pneumonia. Prognosis at Discharge: Baseline. Prognosis is good. No pain, nor urinary symptoms, no GI/ symptoms, No headache, no fever, no vision changes, no loss of taste/smell, No new URI symptoms, reviewed allergy symptoms, no cough/congestion/wheezing/SOA, No CP, no reported fatigue, no abd pain, no N/V/D, no constipation, no changes in urination/stooling, no new MSK pain, no recent injuries. No Falls. Condition at Discharge: Stable, back to baseline, asymptomatic completely. Medications at Discharge: Ambulatory Orders Medication Instructions Recorded B-complex with vitamin C [Blank B 25 cap PO DAILY 01/23/21 Comp W/C] ascorbic acid (vitamin C) [Vitamin 25 mg PO DAILY 01/23/21 C] acetaminophen [Tylenol 8 Hour] 650 mg PO Q12H #20 tab 01/24/21 cefdinir 300 mg PO BID #9 cap 01/24/21 levofloxacin 750 mg PO Q48H #5 tab 01/24/21 ondansetron 4 mg PO Q8H #20 tab 01/24/21 Lab/Diagnostics: Laboratory Results - last 24 hr 01/24/21 01/24/21 05:09 05:09 WBC 9.86 RBC 3.63 L Hgb 10.3 L Hct 31.7 L D MCV 87.3 MCH 28.4 MCHC 32.5 RDW Coeff of Kumar 13.4 Plt Count 186 Immature Gran % (Auto) 0.2 Neut % (Auto) 68.3 Lymph % (Auto) 21.5 [place] % (Auto) 8.0 Eos % (Auto) 1.6 Baso % (Auto) 0.4 Neut # (Auto) 6.7 Lymph # (Auto) 2.1 [place] # (Auto) 0.8 Eos # (Auto) 0.2 Baso # (Auto) 0.0 Immature Gran # (Auto) 0.0 Sodium 138.9 Potassium 4.16 Chloride 111.2 H Carbon Dioxide 22.0 Anion Gap 9.86 BUN 18.0 H Creatinine 0.74 Estimated GFR (MDRD) 74.00 BUN/Creatinine Ratio 24.32 Glucose 130.7 H D Calcium 8.11 L Total Bilirubin 0.56 AST 75.5 H D ALT 68.5 H D Alkaline Phosphatase 55.4 Total Protein 6.75 Albumin 3.39 L Globulin 3.36 Albumin/Globulin Ratio 1.00 Imaging: CXR: IMPRESSION: 1. No acute cardiopulmonary process. 2. Nonspecific right hilar prominence, which could represent vascular summation artifact versus adenopathy or neoplasm. CT chest with IV contrast can further evaluate. CT Chest/abd/pelvis: CT chest: No right hilar mass. The abnormality on prior radiographs is likely related to superimposition of vascular structures. Sub centimeter mediastinal and hilar lymph nodes which are not pathologic by size criteria. Cardiomegaly and atherosclerotic vascular disease as described. Dependent atelectasis. Patchy ground-glass opacities in the lower lobes bilaterally may represent superimposed mild pneumonitis/pneumonia. Clinical correlation is recommended. 0.5 cm subpleural nodule laterally in the right lung base. Recommend follow-up CT chest in [address] abdomen/pelvis: Atherosclerotic vascular disease. No evidence of bowel obstruction. Normal appendix. Moderate amount of well- formed stool. Mild to moderate right hydronephrosis without definite obstructing radiopaque calculus. Suspected urothelial enhancement. Wall thickening of the urinary bladder. Correlate clinically for signs of cystitis/pyelonephritis or recent stone passage. Question small left renal cyst. Cholelithiasis. Correlate clinically for signs of acute cholecystitis. Additional chronic / degenerative changes as described. Pending tests: Urine culture Blood Culture Sputum Culture. Education Provided to Patient and Family: Pyelonephritis Pneumonia Cholelithiasis possible cholecystitis Levaquin 750 mg 1 by QOD x 5 doses Cefdinir 300 BID x 5 days. DM onset, not on medications. Goal A1C <8%. Tylenol for pain. Call or return to clinic if worsening/not improving. Return to ED if fever, Nausea, unable to tolerate liquids. Follow-ups: 1. Dr. King 01/28 at 1030. Discharge Disposition: Home Hospital Course: Day 1: 01/23/21 85 yo Somali Female presented to ED this am 01/23/21 at 0733 with chills, nausea, vomiting x2. The patient is present with her son, who is able to translate for her due to language barrier. Vitals on presentation showed temp 102.5, pulse 115, rr 22 BP 198/93 and Po2 96% on RA. SIRS criteria were met based on temp, HR, RR. Symptoms present 2 hours fever, nausea and emesis this am. No reported SOA/sxs. Symptoms still present, moderate severity in ED, no known agg/ameliorating factors. Reported non longterm resident. No reported respiratory distress, no stridor, no emphysema, no diminished breath sounds reported, Fatigue reported, no peripheral edema. Ddx in ED considered COPD exacerbation, pneumonis, SARS, URI. ROS as listed. Exam from ED only showed mild erythematous pharynx. EKG done in ED 0807 Sinus tachy, nl axis, ST segments normal> The formal EKG was not available to my review at time of rounding. Labs in ED showed Flu negative, rapid COVID negative. BIOFIRE PENDING at time of examination. WBC 11.21, hgb 12.9, plt 228. Neutrophila 89.7% ANC 10.1. CMP Sodium 138.9, K+ 4.31, BUN 20.3, cr 0.76, glucose 205. Calcium 9.51. AST 28.4. ALT 16.3. Alk phos 65.6. Troponin I was negative at 0.044. Lactic acid elevated at 2.63. Urine showed 6.5 PH, SG 1.030. Protien 3+, blood trace, nitrite positive, trace leuk est, rbc 5-10, wbc 30-50, squam epi 2-5, bact 3+. Blood cultures were ordered/submitted. Chest xray was completed no acute process. Non specific right hilar prominence which could represent vascular summation artifact versus adenopathy or neoplasm. CT chest with IV contrast can further evaluate. CT abd/pelvis was ordered. No right hilar mass. The abnormality on prior radiographs is likely related to superimposition of vascular structures. Sub centimeter mediastinal and hilar lymph nodes which are not pathologic by size criteria. Cardiomegaly and atherosclerotic vascular disease as described. Dependent atelectasis. Patchy ground-glass opacities in the lower lobes bilaterally may represent superimposed mild pneumonitis/pneumonia. Clinical correlation is recommended. 0.5 cm subpleural nodule laterally in the right lung base. Recommend follow-up CT chest in [address] abdomen/pelvis: Atherosclerotic vascular disease. No ev idence of bowel obstruction. Normal appendix. Moderate amount of well-formed stool. Mild to moderate right hydronephrosis without definite obstructing radiopaque calculus. Suspected urothelial enhancement. Wall thickening of the urinary bladder. Correlate clinically for signs of cystitis/pyelonephritis or recent stone passage. Question small left renal cyst. Cholelithiasis. Correlate clinically for signs of acute cholecystitis.Additional chronic / degenerative changes as described. Dr. Vincent presented a patient with pneumonia to me clinically. I asked several questions about the patient care and found that her summation is more likely urosepsis than pneumonia w/ sepsis. She was given clonidine in ED 0.2mg and her BP dropped from 198/93 to 80's SBP per ED report. HR dropped to <100 as well per ED report. Given tylenol 650, also 1 L NS which is reasonable assuming sepsis protocol. She was given ibuprofen, which I will not continue at [facility]. Zofran for nausea and azithrmax 500 and rocephin 1 gram. Based on concern for emesis, concern for bilateral pneumonia, concern for NH status, Pseudomonas must be considered. I will change this to levaquin 750 daily and cefepime 2grams IV q 8 hours. I have not seen patient as an outpatient historically. She had an appt with me historically but this appt was not kept. I evaluated patient in ED room 1. Called son at [phone] and had a 14 minute conversation. Patient awoke this am with s/sx of current problem. Yesterday was fine, this am was fine. 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 She had 2 rounds of emesis. Did not choke.Did not seem to be different, no drop in face, no weakness, no falls, no confusion, no altered status. He noted that he gave her a heating pad and that she felt a little better. They brought her to ED and she noted she felt nearly 100% better after fluids and abx. In fact, she wanted to go home. Son noted that the ER doctor told her it was not safe and they needed to talk to me first. He stated she feels everything is good. No c/o burning with urination, no frequency, no hesitancy, no burning. No diarrhea, no N/V/D prior to today. No abnormal foods, no sick contacts, no recent travel. No other c/o that they can report. She normally takes Vit D/Vit C/Vit B. This am took some tylenol PM when feeling poorly. Healthy otherwise, no medical problems, no regular provider, no regular doctors office visits. Last time she saw a doctor was 6 months ago. Went to visit daughter in [place] and had similar episode of 1 day fever and symptoms. Son noted that they kept her for 5 days but has no idea what they did. I asked if he could contact her and we would discuss what they did for her at that time. No regular meds, no regular medical problems, does not get routine medical care/surveillance. They were not able to understand code status. I will keep them as full code for now. Son noted she was at baseline. No N/V now. No abdominal pain,no chest pain, no SOA. No reported headache, no vision changes, no loss of taste/smell, No new URI symptoms, reviewed allergy symptoms, no cough/congestion/wheezing/SOA, No CP, no reported fatigue, no abd pain, no N/V/D, no constipation, no changes reported in urination/stooling, no new MSK pain except as above, no recent injuries except as listed above. Falls reviewed and listed above. 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 No dietary issues, no choking on foods. normal BM, normal uout. Only issues was this am nausea/vomiting and fever. I asked if she would be willing to stay overnight at least to evaluate her and to make sure she is improving. He said yes. I feel that this is more urological than pulmonary based on presentatation and CT scan. I will cover with cefepime and levaquin for urosepsis as possible. Biofire returned at 11:10 otero negative. Procalcitonin was below typical threshold of <.50 but borderline. Last Vitals as of 12:18. Temp 99.6. Pulse 78 and BP 84/49 with O2 94% on RA. She is improving. I agree at least 24 hour admission is warranted. PORT SCORE: 92 points Risk Class IV 8.2-93.% Mortality. Recommended hospitalization as inpatient. CrCl 47ml/min. based on this Would recommend Cefepimre 2gram q 12 hours and Levaquin 750mg QOD (q 48 hours). Fluids to continue at 97 ml/hour Lovenox for DVT prophy recommended. Day 2 01/24/21: 85 yo Somali Female presented to ED yesterday 01/24/21 with fever, N/V, chills. She was found to have SIRS w/ suspected Urosepsis and pneumonia. BC and UC pending. Presented w/ marked HTN and tachycardia and was given clonidine in ED and then had drop in BP. She has remained afebrile since ED checks at 0731 yesterday am. 11:39 vitals were duplicates. HR 72-18 except for one reading of 103 at 2148. BP has been on the lower end since clonidine in ED x 1. She is mildly elevated this am at 145/78 but based on age we can tolerate <150 SBP. RR 16-18. o2 95-99% except one reading of 88%. She is on 2L o2 through night, 97% this am on RA. Telemetry reviewed and she remained in SR througout the night. Labs this am showed WBC has dropped from 11.21 to 9.86. Hgb from 12.9 to 10.3, plt 228 to 186. This appears to be a dilutional affect. Her differential on CBC was completely normal. Chemistry this am showed sodium 138.9, K+ 4.16, cl 111.2, bun 18, creatinine 0.74 and stable, GFR 74. Glucose was 130.7 this am. A1C did return 7.47 which is diabetic state. However based on age, we can accept up to 8% in this patient. This should be addressed as an outpatient. Liver enzymes did increase from 28.4 AST/16.3 ALT to 75.5 and 68.5. The GB did have e/o stones. We will monitor this process as it may also be transient. She is not on any home meds. Albumin low at 3.39 and clacium appeared a little low as well at 8.11. However, corrected calcium was normal at 8.6 based on corrected calcium formula. Blood and urine cultures remain pending at the time of documentation. Overnight eval by nursing. 1737 some confusion from patient, barrier with language. Son was allowed to sit with patient to assist with language barrier. ALISIA Ewing 21:59 01/23/21 up to bathroom. Generalized weakness unsteady at times. Concepcion urine. Afebrile. No Naus ea/fever/chills. Zofran and abx doing well. Note 0536 01/24/21. Communicating better with patient. Talking with son PRN. This am the patient has no c/o. Total intake 1674 ml and output 925ml. She is feeling better, ate 75% of dinner. No reported headache, no fever, no vision changes, no loss of taste/smell, No new URI symptoms, reviewed allergy symptoms, no cough/congestion/wheezing/SOA, No CP, no reported fatigue, no abd pain, no N/V/D, no constipation, no changes in urination/stooling, no new MSK pain except as above, no recent injuries except as listed above. Falls reviewed and listed above. Patient feels well and wants to go home. Based on vitals, afebrile status, I think this is a reasonable consideration for tomorrow am. I suspect pyelonephritis and levaquin should be a reasonable choice. At this time plan to d/c tomorrow per son/patient wishes. 8 minute conversation using [facility] in speaker phone format with son as manufacturing engineer paint. They did not want language line. Patient has no c/o. Son talked with sister, similar event before. He asked about her kidneys, I noted infection was present. I noted she is on abx. I noted that her liver enzymes were elevated and she has now met criteria for DM. They want to go home today, adamant that she does not want to stay, she is bored, does not want to be here any longer than she has to. No c/o, no abd pain, no chest pain, no SOA. She denied weakness, SELLERS, denied any concern. I noted if she still feels the same around lunch/this afternoon we will get her home this night. I would like to have some guidance from urine culture. Urine culture showed heavy G- Rods as of 941 suggesting that as the source for her pyelo/infection and less likely pneumonia. levaquin/cefdinir should be okay to d/c patient home on and will adjust based on return of culture and sensitivity data. PENDING LABS URINE CULTURE DAY OF DISCHARGE EXAM: Vital Signs - 24 hr 01/23/21 17:27 01/23/21 19:54 01/23/21 21:48 Temperature 98.8 F 99.4 F Pulse Rate 72 103 H Respiratory Rate 16 16 18 Blood Pressure 97/52 L 131/73 O2 Sat by Pulse Oximetry 99 95 01/24/21 05:20 01/24/21 05:32 01/24/21 10:00 Temperature 97.5 F L Pulse Rate 78 Respiratory Rate 16 Blood Pressure 145/78 H O2 Sat by Pulse Oximetry 99 97 96 01/24/21 13:20 01/24/21 14:00 Temperature 99.0 F Pulse Rate 87 Respiratory Rate 18 Blood Pressure 126/69 O2 Sat by Pulse Oximetry 96 98 Constitutional: Appearance-No acute distress, Resting eyes closed. Opens eyes to command. GCS 15. Language Somali, non kaguyuk Salvadorean speaker. Son as manufacturing engineer paint via phone. Offered language line, he would like that in future, but now he is happy to translate. Unchanged from yesterday. Pt consistent with stated age. Orientation- Oriented x 3, aware of name, day of week, hospital, january. Build and Nutrition-normal BMI 22.9 General- Patient is pleasant and cooperative with the interview and exam. She was able to understand some brazilian phrases and commands. Integumentary: General-No rashes, ulcers or lesions. Palpation- Normal skin moisture/turgor. Skin is warm to touch, appropriate. Capillary refill is normal bilateral Upper and lower extremity. Scaring bilateral anterior shins. Head/Neck: Head- normocephalic and atraumatic. Neck- without visible/palpable lumps or pulsations. Palpation- No bony tenderness about head/neck along frontal, occipital, temporal, parietal, mastoid, jawline, zygoma, orbit or any other location. NO temporal artery tenderness. No TMJ tenderness. Neck Supple. Thyroid-No thyromegaly, no nodules Eye: Bilaterally PERRLA, EOMI. No discharge. Upper and lower eyelids are normal. Sclera/conjunctiva normal without discharge. Cornea is normal and clear. Lens is normal. Eyeball appears normal. No ciliary flushing, no conjunctival injection. ENMT: Nose and sinus- No sinus tenderness along frontal/maxillary region. External appearance normal and midline. Nares- bilateral quiet airflow, no discharge. Nasal mucosa- No bleeding noted and no ulcerations observed. [place], moist. Turbinates non boggy. Lips- normal color, moist without cracks/lesions Oral Cavity/Palate- hard/soft palate intact without lesions, oral mucosa pink and moist. Tongue normal midline. Oropharynx- no pharyngeal erythema, Uvula midline. No post nasal drip. No exudate. Salivary glands- Non tender to palpation CHEST/LUNG: Inspection- symmetric chest wall no pectus deformity. Normal effort, no distress, no use of accessory muscles. Palpation- nontender sternum, ribline. No abnormal pulsations. Auscultation- Breath sounds normal throughout all lung shah. Normal tracheal sounds, Normal bronchial sounds overlying sternum, Bronchovessicular sounds coarse and reduced between scapulae posteriorly, similar for vessicular breath sounds heard throughout periphery. Lungs are mostly clear except mild crackling at the bases. Adventitious sounds- No wh eezes, no rhonchi, rales as listed. Shallow inspiration. Coughed x 1 cleared. Biofire negative for COVID. CARDIOVASCULAR: Carotid artery- normal, no bruits or abnormal pulsations. Jugular vein- no pulsations. Palpation/Percussion- Normal PMI, no palpable thrill Auscultation- Regular rate and rhythm. No murmur noted in sitting, supine positions. Extremities- no digital clubbing, cyanosis, edema, increased warmth. No appreciable murmur. ABDOMEN: Inspection- normal and no visible pulsations. Normal contour. Auscultation- Bowel sounds normal, no abdominal bruits. Palpation/Percussion- soft, non-tender all Quadrants, no rebound tenderness, no rigidity (guarding), no jar tenderness, no masses. CVA tenderness - bilaterally am of 01/23/21. Negative 01/24/21. Mcburney negative, ortega negative. Peripheral Vascular: Upper extremity Left- Normal temperature with pink nailbeds and no ulcerations. Upper extremity Right- Normal temperature with pink nailbeds and no ulcerations. Lower extremity- Normal temperature with pink nailbeds and no ulcerations. DP pulses 2+ bilaterally. Pedal hair intact. Normal capillary refill. Edema- No edema. Musculoskeletal: Generalized-No generalized swelling or edema of extremities, no digital clubbing or cyanosis, neurovascularly intact all four extremities. Neurological: General- Moves all 4 extremities symmetrically. Symmetrical face and body posture. Cranial nerves- individually evaluated II-XII and intact. PERRLA, Normal EOMI, visual/special senses appear intact, Face is symmetrical and normal sensation/movement, normal tongue, normal strength/posture of neck musculature. Strength- 5/5 bilateral UE and LE. Soft touch- intact bilateral UE and LE. Temperature sensation- intact bilateral UE and LE. Neuropsych: Oriented- Person, place, time. (AAOx3), Mood/affect- normal and congruent. Able to articulate well. Speech-Normal speech, Somali, some brazilian. Talked with son today. Normal, baseline. language barrier. She has age appropriate understanding. Lymphatic: Head/Neck- normal size and non tender to palpation. No peripheral edema. Plan: - D/C home 01/24/21 - F/U in office with DR. King 01/28/21 1030 - Pyelonephritis with SIRS - Antibiotics to be sent via Rx to pharmacy. - Follow up with cultures and we may adjust antibiotics. - Levaquin 750 mg 1 by QOD x 5 doses Dose 1 01/25/21, Dose 2 01/27, Dose 3 01/29, Dose 4 01/31, Dose 5 02/02. R/B/A to meds d/w patient, SE reviewed, handout offered regarding medications listed. Tendon rupture specifically mentioned in addition to ?aortic issues. - Cefdinir 300 BID x 5 days. - Pneumonia - Pulmonary Nodule: F/U in 1 year with imaging - Cholelithiasis possible cholecystitis - Monitor, asymptomatic. - New onset/DX DM 2. A1C goal <8%. - No medications. Address as outpatient. - Tylenol for pain. - ZOfran for nausea - Call or return to clinic if worsening/not improving.- - Return to ED if fever, Nausea, unable to tolerate liquids. 37 minutes spent today on rounding. Patient/son decided to go home. Another 15 minutes spent on discharge as well. Total time today >50 minutes on patient care.
[2021-01-25] MEDS ORDERED: LEVAQUIN 750 MG/150 ML D5W 750 MG/150 ML BAG IV SCH (09:00)
== END 2021-01-24 17:40 | disposition home or self-care (01) | DRG 194 ==
LOC: ED 07:26 → MEDSURG A 12:27
PROVIDERS: ADMIT Family Medicine; ATTEND Family Medicine
DX: R50.9 Fever, unspecified; Z20.822 Contact with and (suspected) exposure to COVID-19; J18.9 Pneumonia, unspecified organism; K80.20 Calculus of gallbladder without cholecystitis without obstruction; D72.829 Elevated white blood cell count, unspecified; D64.9 Anemia, unspecified; R11.2 Nausea with vomiting, unspecified; R22.2 Localized swelling, mass and lump, trunk; R65.10 Systemic inflammatory response syndrome (SIRS) of non-infectious origin without acute organ dysfunction; Z78.9 Other specified health status; E73.9 Lactose intolerance, unspecified